=== PATIENT | female | born 1945 | race Caucasian/White ===

== ENCOUNTER → 2018-05-01 08:58 | Outpatient (CLI) | payer MEDICARE, OTHER, SELFPAY | PROVIDERS: Family Provider Family Medicine; PCP Family Medicine; Visit Provider Family Medicine | DX: R13.10 Dysphagia, unspecified (principal); Z53.9 Procedure and treatment not carried out, unspecified reason ==

== ENCOUNTER → 2018-05-03 10:43 | Outpatient (CLI) | payer MEDICARE, OTHER, SELFPAY ==
--- NOTE | 2018-05-03 | DI.RAD.S_ITS ---
PROCEDURE: FL UPPER GI W AIR INDICATIONS: DYSPHAGIA COMPARISON: None. FINDINGS: KUB: Preprocedural clinical partner film demonstrates a normal bowel gas pattern. No suspicious abdominal calcifications. Visualized solid organ contours appear normal. Bony structures appear unremarkable. Esophagus: A sliding hiatal hernia is present. There is a 1 cm diverticular outpouching over the left anterolateral aspect of the herniated segment. Also noted is mucosal irregularity along the right posterolateral aspect of the distal esophageal vestibule, suspect 4 shallow ulcerations. Marked, spontaneous and induced gastroesophageal reflux was demonstrated. On single-contrast views, there is abnormal esophageal peristalsis with failure of primary peristalsis. No strictures, extrinsic mass effects. There is normal transit of a calibrated barium tablet through the esophagus into the stomach. Stomach: The stomach is normally distensible, with normal rugal fold thickness. No mucosal masses or ulcers. Pylorus and duodenal bulb appear normal in morphology. Duodenal folds are normal in thickness as well. IMPRESSION: 1. Esophageal dysmotility. Sliding hiatal hernia with reflux and suspicion of shallow ulcerations in the distal esophagus just above the gastroesophageal junction. A small diverticular outpouching of the herniated portion of the stomach also noted. 2. Otherwise the stomach, duodenum and visualized small intestine is normal. Dictated by: Raza Root M.D. on 05/03/2018 at 12:47 Approved by: Raza Root M.D. on 05/03/2018 at 12:54
== END ==
PROVIDERS: Family Provider Family Medicine; PCP Family Medicine; Visit Provider Family Medicine
DX: K22.4 Dyskinesia of esophagus (principal); K21.9 Gastro-esophageal reflux disease without esophagitis; K44.9 Diaphragmatic hernia without obstruction or gangrene; R13.10 Dysphagia, unspecified
CPT/HCPCS: 74247

== ENCOUNTER → 2018-05-17 11:14 | Outpatient (CLI) | payer MEDICARE, OTHER, SELFPAY ==
--- NOTE | 2018-05-17 | DI.MG.S_ITS ---
BILATERAL DIGITAL SCREENING MAMMOGRAM 3D/2D WITH CAD: 05/17/2018 CLINICAL: Routine screening. Comparison is made to exams dated: 02/09/2017 mammogram, 07/29/2015 mammogram, and 07/22/2014 mammogram - [facility]. The tissue of both breasts is predominantly fatty. Current study was also evaluated with a Computer Aided Detection (CAD) system. No significant masses, calcifications, or other findings are seen in either breast. There has been no significant interval change. IMPRESSION: NEGATIVE There is no mammographic evidence of malignancy. A 1 year screening mammogram is recommended. This exam was interpreted at Station ID: [id number]. NOTE: For mammograms, a report in lay terms will be sent to the patient. Approximately 15% of breast malignancies will not be visualized mammographically. In the management of a palpable breast mass, a negative mammogram must not discourage biopsy of a clinically suspicious lesion. Electronically Signed By: Radha delarosa/gwen:05/17/2018 14:58:52 copy to: Ericka Carbone letter sent: Normal Exam ACR BI-RADS Category 1: Negative 3341F
== END ==
PROVIDERS: Family Provider Family Medicine; PCP Family Medicine; Visit Provider Family Medicine
DX: Z12.31 Encounter for screening mammogram for malignant neoplasm of breast (principal)
CPT/HCPCS: 77063; 77067

== ENCOUNTER → 2018-12-27 10:58 | Outpatient (CLI) | payer MEDICARE, OTHER, SELFPAY ==
--- NOTE | 2018-12-27 | DI.US.S_ITS ---
PROCEDURE: US THYROID INDICATIONS: THYROID NODULE TECHNIQUE: Real-time scanning was performed of the thyroid gland, with image documentation. COMPARISON: [facility], US, THYROID, 09/12/2013, 8:00. [facility], US, BIOPSY LOCALIZATION/ASPIRATION, 09/20/2013, 9:06. [facility], US, THYROID, 04/14/2014, 10:30. [facility], US, THYROID, 08/03/2015, 12:58. [facility], US, THYROID, 09/25/2017, 13:18. [facility], US, THYROID, 07/14/2016, 10:16. FINDINGS: Right: Thyroid lobe measures 3.4 x 2.2 x 1.8 cm. Two nodules are identified. Left: Thyroid lobe measures 3.5 x 1.0 x 1.4 cm. Two nodules are identified. Isthmus: 2.2 mm thick. Nodule number: 1 Location: Mid right lobe Size: 2.2 x 1.8 x 1.3 cm (previously 1.6 x 1.4 x 2.2 cm). Composition: Predominantly solid Echogenicity: Hypoechoic Shape: wider than tall. Margins: Smooth Echogenic foci: Punctate Total points: 6 ACR TI-RADS category: 4 Nodule number: 2 Location: Inferior right lobe Size: 0.6 x 0.4 x 0.5cm (previously 0.7 x 0.4 x 0.6 cm). Composition: Solid Echogenicity: Isoechoic Shape: wider than tall. Margins: Smooth Echogenic foci: None Total points: 3 ACR TI-RADS category: 3 Nodule number: 3 Location: Mid left lobe Size: 0.7 x 0.6 x 0.5 cm (previously 0.8 x 0.5 x 0.6 cm). Composition: Solid Echogenicity: Isoechoic Shape: wider than tall. Margins: Smooth Echogenic foci: None Total points: 3 ACR TI-RADS category: 3 Nodule number: 4 Location: Superior left lobe Size: 0.6 x 0.3 x 0.4 cm (2.5 x 0.4 x 0.4 cm). Composition: Predominantly cystic Echogenicity: Hypoechoic Shape: wider than tall. Margins: Smooth Echogenic foci: None Total points: 3 ACR TI-RADS category: 3 IMPRESSION: No significant change in multiple thyroid nodules bilaterally. ACR TI-RADS definitions and recommendations: TI-RADS 1 (benign): 0 points. FNA not needed. TI-RADS 2 (not suspicious): 2 points. FNA not needed. TI-RADS 3 (mildly suspicious): 3 points. * FNA if 2.5 cm or larger, follow up if 1.5 cm or larger (at 1, 3, and 5 years). TI-RADS 4 (moderately suspicious): 4-6 points. * FNA if 1.5 cm or larger, follow up if 1 cm or larger (at 1, 2, 3, and 5 years). TI-RADS 5 (highly suspicious): 7 points or more. * FNA if 1 cm or larger, follow up if 0.5 cm or larger (every year for 5 years). Dictated by: Kylee Giron M.D. on 12/27/2018 at 13:13 Approved by: Kylee Giron M.D. on 12/27/2018 at 13:29
== END ==
PROVIDERS: PCP Family Medicine; Visit Provider Family Medicine
DX: E04.2 Nontoxic multinodular goiter (principal)
CPT/HCPCS: 76536

== ENCOUNTER → 2019-01-02 14:33 | Outpatient (CLI) | payer MEDICARE, OTHER, SELFPAY ==
--- NOTE | 2019-01-02 | DI.RAD.S_ITS ---
PROCEDURE: XR HIP W PEL IF DONE LT 2V INDICATIONS: LEFT HIP FRACTURE TECHNIQUE: 2 views of the hip were acquired. COMPARISON: [facility], , HIP 2V RIGHT, 02/05/2009, 14:31. FINDINGS: Bones: No fractures or dislocations. No suspicious bony lesions. The visualized pelvic ring appears intact. Soft tissues: No suspicious soft tissue calcifications or masses. 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 Normal alignment bilaterally. Dictated by: Dewey Almanza M.D. on 01/02/2019 at 15:14 Approved by: Dewey Almanza M.D. on 01/02/2019 at 15:15
== END ==
PROVIDERS: PCP Family Medicine; Visit Provider Family Medicine
DX: S72.002A Fracture of unspecified part of neck of left femur, initial encounter for closed fracture (principal); Z96.642 Presence of left artificial hip joint
CPT/HCPCS: 73502

== ENCOUNTER → 2019-06-20 14:53 | Outpatient (CLI) | payer MEDICARE, OTHER, SELFPAY ==
--- NOTE | 2019-06-20 | DI.MG.S_ITS ---
BILATERAL DIGITAL SCREENING MAMMOGRAM 3D/2D WITH CAD: 06/20/2019 CLINICAL: Routine screening. Comparison is made to exams dated: 05/17/2018 mammogram, 02/09/2017 mammogram, and 07/29/2015 mammogram - [facility]. There are scattered fibroglandular elements in both breasts. Current study was also evaluated with a Computer Aided Detection (CAD) system. There are benign calcifications in both breasts. No significant masses, calcifications, or other findings are seen in either breast. There has been no significant interval change. IMPRESSION: There is no mammographic evidence of malignancy. A 1 year screening mammogram is recommended. This exam was interpreted at Station ID: [id number]. NOTE: For mammograms, a report in lay terms will be sent to the patient. Approximately 15% of breast malignancies will not be visualized mammographically. In the management of a palpable breast mass, a negative mammogram must not discourage biopsy of a clinically suspicious lesion. Electronically Signed By: Moustapha pham/gwen:06/20/2019 17:14:05 letter sent: Normal Exam ACR BI-RADS Category 2: Benign Finding(s) 3342F
== END ==
PROVIDERS: PCP Family Medicine; Visit Provider Family Medicine
DX: Z12.31 Encounter for screening mammogram for malignant neoplasm of breast (principal)
CPT/HCPCS: 77063; 77067

== ENCOUNTER 2019-07-04 03:13 | Emergency (ER) | payer MEDICARE, OTHER, SELFPAY ==
[2019-07-04 03:23] VITALS: BP 125/70; PULSE 84; RESP 15; TEMP 36.8; O2SAT 98; BMI 32.5
--- NOTE | 2019-07-04 03:23 | ED_ITS ---
HPI - Nausea/Vomiting/Diarrhea General Chief complaint: Nausea/Vomiting/Diarrhea Stated complaint: felt lightheaded, got sweaty, has diabetes Time Seen by Provider: 07/04/19 03:15 Source: patient Mode of arrival: Ambulatory Limitations: no limitations History of Present Illness HPI Narrative: The patient was well when she went to bed. She awoke with onset of nausea and vomiting. She had emesis x4. With 1 episode when she got up from bed to vomit she became dizzy. There was no near syncope affect. There is no chest pain, palpations or focal weakness. She has had no fever. She has also had 1 diarrhea movement. She had homemade vegetables for dinner, no suggestion for food poisoning. She has been around no one with similar illness. She has no chronic GI medical issues. She does have IDDM. Her glucose at home has been 100s. She has no urinary complaints with the GI complaints. Related Data Home Medications Medication Instructions Recorded Confirmed ASPIRIN (#ASPIRIN) 325 mg PO Q DAY #0 07/06/12 glipizide [Glucotrol] 10 mg PO BID #0 07/06/12 hydrochlorothiazide 25 mg PO QDAY #0 07/06/12 lisinopril 10 mg PO BID #0 07/06/12 Pravastatin Sodium (PRAVASTATIN 40 mg PO HS #0 07/11/12 SODIUM) diltiazem HCl 180 mg PO Q DAY #0 07/11/12 insulin aspart U-100 [Novolog #0 01/14/13 U-100 Insulin aspart] pramipexole [Mirapex] 0.125 mg PO BID #0 07/22/13 Previous Rx's Medication Instructions Recorded Syringes: 1cc U-100 Insulin syr SQ BID #100 08/17/16 Syringe 25g x 1 insulin glargine [Lantus U-100 20 unit SQ HS #10 ml 08/17/16 Insulin] ondansetron 4 mg PO Q4H PRN #14 tab 07/04/19 sulfamethoxazole-trimethoprim 1 tab PO BID 7 Days #14 tab 07/04/19 sulfamethoxazole-trimethoprim 1 tab PO Q12H 7 Days #14 tab 07/04/19 Allergies Allergy/AdvReac Type Severity Reaction Status Date / Time Sulfa (Sulfonamide Allergy Intermediate CONVULSIONS Verified 07/04/19 04:29 Antibiotics) A CHILD; RASH AN ADULT Review of Systems Review of Systems ROS Unobtainable: All systems reviewed & are unremarkable except as noted in HPI and below Constitutional Constitutional: Denies chills, Denies fever(s), Denies lethargy and Denies weakness ENT Ears, Nose, Mouth, and Throat: Reports dizziness, Denies neck pain and Denies sore throat Cardiovascular Cardiovascular: Denies chest pain, Denies lightheadedness, Denies palpitations, Denies dyspnea and Denies orthopnea Respiratory Respiratory: Denies cough, Denies dyspnea and Denies wheezing Gastrointestinal Gastrointestinal: Denies abdominal pain, Reports diarrhea, Reports nausea and Reports vomiting Genitourinary Genitourinary: Denies dysuria, Denies urinary hesitancy and Denies urinary urgency Musculoskeletal Musculoskeletal: Denies back pain and Denies neck pain Integumentary/Breasts Skin/Breast: Denies pruritus, Denies erythema, Denies rash and Denies wounds Neurologic Neurologic: Denies confusion, Reports dizziness and Denies weakness Psychiatric Psychiatric: Denies anxiety and Denies confusion Endocrine Endocrine: Denies palpitations Allergic/Immunologic Allergic/Immunologic: Denies wheezing [facility] Medical History (Updated 07/04/19 @ 05:40 by Roland Cartagena MD) Hypertension (Acute) IDDM (insulin dependent diabetes mellitus) (Acute) Surgical History History of cataract removal with insertion of prosthetic lens History of cataract removal with insertion of prosthetic lens Status post cholecystectomy Status post knee surgery Family History (Updated 09/21/15 @ 00:00 by Conversion Provider) Brother Age: 56 Heart disease Father Heart disease Grandfather Diabetes mellitus Mother Age: 90 Alzheimer's disease Diabetes mellitus Sister Diabetes mellitus Sister Age: 68 Diabetes mellitus Hypertension Social History Smoking Status: Never smoker Family History Brother Age: 56 Heart disease Father Heart disease Grandfather Diabetes mellitus Mother Age: 90 Alzheimer's disease Diabetes mellitus Sister Diabetes mellitus Sister Age: 68 Diabetes mellitus Hypertension Social History Smoking Status: Never smoker Exam Initial Vital Signs Initial Vital Signs: Vital Signs Temperature 98.2 F 07/04/19 03:23 Pulse Rate 84 07/04/19 03:23 Respiratory Rate 15 07/04/19 03:23 Blood Pressure 125/70 07/04/19 03:23 Pulse Oximetry 98 07/04/19 03:23 Const General: cooperative and well developed Nutritional Appearance: well nourished Orientation: alert, awake and oriented x3 [facility] Head: normal to inspection, normocephalic and atraumatic Mouth: oral mucosae normal and moist mucous membranes Eyes Conjunctivae: conjunctivae normal Neck Neck: full ROM, no meningeal signs and No lymphadenopathy Resp Effort & Inspection: normal respiratory effort and able to speak in complete sentences Auscultation: clear to auscultation bilaterally, no rales, no rhonchi and no wheezes Cardio Rate: regular rate Rhythm: regular rhythm Heart Sounds: no click, no gallops, no murmurs and no rubs Pulses: normal peripheral pulses GI Inspection: non-distended Palpation: soft, no hepatosplenomegaly, No guarding, No pulsatile mass and No tender Auscultation: normal bowel sounds Back/Spine/Pelvis Back: No CVA tenderness Skin General: no rashes or lesions noted Neuro General: alert, oriented x3, gait normal and no focal motor deficits Speech: speech normal Extrem General: full ROM and no clubbing, cyanosis or edema Psych Appearance: well kempt Mental Status: mental status grossly normal Attitude: cooperative Thought Content: normal Judgment: judgment good Course Orders Ordered: ED Orders 07/04/19 03:20 Complete Blood Count AUTO DIFF Stat Comprehensive Metabolic Panel Stat Lipase Stat 07/04/19 04:30 Urine Culture Stat Urine Microscopic Stat Discontinued Medications Sodium Chloride (Normal Saline 0.9%) 1,000 mls @ 1,000 mls/hr IV BOLUS ONE Stop: 07/04/19 04:22 Last Infusion: 07/04/19 04:28 Dose: 0 mls/hr Documented by: Admin: 07/04/19 03:32 Dose: 1,000 mls/hr Documented by: NATALI Ceftriaxone Sodium/Dextrose (Rocephin) 1 gm in 50 mls @ 100 mls/hr IV NOW ONE Stop: 07/04/19 05:53 Last Infusion: 07/04/19 05:52 Dose: 100 mls/hr Documented by: Admin: 07/04/19 05:26 Dose: 100 mls/hr Documented by: CHAVA Ondansetron HCl (Zofran) 4 mg IV NOW ONE Stop: 07/04/19 03:24 Last Admin: 07/04/19 03:31 Dose: 4 mg Documented by: NATALI Ondansetron HCl (Zofran Odt) 4 mg SL NOW ONE Stop: 07/04/19 05:25 Last Admin: 07/04/19 05:51 Dose: 4 mg Documented by: CHAVA Vital Signs Vital signs: Vital Signs - 8 hr 07/04/19 03:23 07/04/19 04:00 07/04/19 05:45 Temperature 98.2 F Pulse Rate 84 62 70 Respiratory Rate 15 16 15 Blood Pressure 125/70 102/54 L Blood Pressure [Right Arm] 116/49 L Pulse Oximetry 98 95 97 MDM - Nausea/Vomiting/Diarrhea Lab Data Result diagrams: 07/04/19 03:20 07/04/19 03:20 Labs: Lab Results 07/04/19 07/04/19 07/04/19 Range/Units 03:20 03:20 04:30 WBC 9.0 (4.5-11.0) X10^3/uL RBC 4.18 (4.0-5.2) X10^6/uL Hgb 12.6 (12.0-16.0) g/dL Hct 37.2 (36-46) % MCV 88.9 (80-100) fL MCH 30.0 (26-34) PG MCHC 33.8 (30-36) % RDW 13.1 (11.6-14.8) % Plt Count 251 (150-400) X10^3/uL Neut % (Auto) 71.0 (50-75) % Lymph % (Auto) 21.8 L (25-40) % [place] % (Auto) 5.5 (3-14) % Eos % (Auto) 0.7 L (2-4) % Baso % (Auto) 1.0 (0-2) % Neut # (Auto) 6400 (7833-3461) /uL Lymph # (Auto) 2000 (4484-7538) /uL [place] # (Auto) 500 (0-900) /uL Eos # (Auto) 100 (0-450) /uL Baso # (Auto) 100 (0-100) /uL Sodium 136 L (137-145) mmol/L Potassium 3.8 (3.4-5.1) mmol/L Chloride 97 L (98-107) mmol/L Carbon Dioxide 25 (22-32) mmol/L BUN 24 H (7-17) mg/dL Creatinine 1.00 (0.52-1.04) mg/dL Estimated GFR 54.2 L (>60) mL/min BUN/Creatinine Ratio 24.0 H (6-22) Glucose 230 H (80-110) mg/dL Calcium 8.9 (8.4-10.2) mg/dL Total Bilirubin 0.6 (0.2-1.3) mg/dL AST 20 (14-36) IU/L ALT 17 (9-52) IU/L Alkaline Phosphatase 73 (38-126) U/L Total Protein 6.9 (6.3-8.2) g/dL Albumin 3.9 (3.5-5.0) g/dL Globulin 3.0 (1.7-4.1) g/dL Albumin/Globulin Ratio 1.3 (1.0-2.8) Lipase 52 (23-300) U/L Urine RBC 5-10/hpf H (0-5/HPF) Urine WBC None seen (0-5/HPF) Ur Squamous Epith Cells 0-1 /hpf (0-5/HPF) Urine Bacteria Many (>30) H (None) Ur Culture Indicated? Specimen cultured Point of Care Testing Glucose POC 220 Urine Dip Bedside Urine Glucose Negative Bedside Urine Bilirubin - Negative Bedside Urine Ketone + 15 Urine Specific [place] 1.015 Bedside Urine Occult Blood - Negative Bedside Urine pH 6.0 Bedside Urine Protein +/- 15 Bedside Urine Urobilinogen - Negative Bedside Urine Nitrite + Positive Bedside Urine Leukocytes + 70 Esterase Discharge Plan Departure Patient Disposition: Home Clinical Impression: Nausea vomiting and diarrhea Urinary tract infection Qualifiers: Urinary tract infection type: acute cystitis Hematuria presence: without hematuria Qualified Code(s): N30.00 - Acute cystitis without hematuria Discharge Date/Time: 07/04/19 05:45 Instructions: DI for Urinary Tract Infection (UTI), DI for Vomiting -- Adult Activity Restrictions/Additional Instructions: Septra DS 2x times daily for 1 week. This is an antibiotic for the UTI. Zofran every 4 hours as needed for nausea. Drink plenty of water. Return to your regular diet as tolerated. Return the ER for increased nausea vomiting, fever, or simply not improving. Prescriptions: New sulfamethoxazole-trimethoprim 800-160 mg tablet 1 tab PO Q12H 7 Days Qty: 14 RF: 0 ondansetron 4 mg tablet,disintegrating 4 mg PO Q4H PRN (Reason: nausea and vomiting) Qty: 14 RF: 0 sulfamethoxazole-trimethoprim 800-160 mg tablet 1 tab PO BID 7 Days Qty: 14 RF: 0 No Action lisinopril 10 MG tablet 10 mg PO BID Qty: 0 RF: 0 ASPIRIN (#ASPIRIN) 325 mg PO Q DAY Qty: 0 RF: 0 glipizide [Glucotrol] 10 MG tablet 10 mg PO BID Qty: 0 RF: 0 hydrochlorothiazide 25 MG tablet 25 mg PO QDAY Qty: 0 RF: 0 diltiazem HCl 180 MG capsule,extended release 24hr 180 mg PO Q DAY Qty: 0 RF: 0 Pravastatin Sodium (PRAVASTATIN SODIUM) 40 mg PO HS Qty: 0 RF: 0 insulin aspart U-100 [Novolog U-100 Insulin aspart] 100 UNIT/1 ML solution Qty: 0 RF: 0 pramipexole [Mirapex] 0.125 MG tablet 0.125 mg PO BID Qty: 0 RF: 0 insulin glargine [Lantus U-100 Insulin] 100 UNIT/1 ML solution 20 unit SQ HS Qty: 10 RF: 3 Syringes: 1cc U-100 Insulin Syringe 25g x 1 SQ BID Qty: 100 RF: 3 Referrals: Roland Carbone MD [Primary Care Provider] -
[2019-07-04] MEDS: ONDANSETRON 4 MG/2 ML INJ IV (03:31)
[2019-07-04] MEDS: SODIUM CHLORIDE 0.9% 1,000 ML 1000 ML IV (03:32)
[2019-07-04 03:39] LABS: Add Manual Diff / Slide Review NO; Basophils Absolute Auto 100 /uL (0-100); Eosinophils Absolute Auto 100 /uL (0-450); Eosinophils Percent Auto 0.7 % (2-4); Hematocrit 37.2 % (36-46); Hemoglobin 12.6 g/dL (12.0-16.0); Lymphocytes Absolute Auto 2000 /uL (1100-4500); Lymphocytes Percent Auto 21.8 % (25-40); Mean Corpuscular HGB Conc 33.8 % (30-36); Mean Corpuscular Volume 88.9 fL (80-100); Monocytes Absolute Auto 500 /uL (0-900); Monocytes Percent Auto 5.5 % (3-14); Neutrophils Absolute Auto 6400 /uL (1500-7000); Platelet Count 251 X10^3/uL (150-400); Red Blood Cell Count 4.18 X10^6/uL (4.0-5.2); Red Cell Distribution Width 13.1 % (11.6-14.8)
[2019-07-04 03:48] LABS: Alanine Aminotransferase 17 IU/L (9-52); Albumin 3.9 g/dL (3.5-5.0); Albumin Globulin Ratio 1.3 (1.0-2.8); Alkaline Phosphatase 73 U/L (38-126); Aspartate Aminotransferase 20 IU/L (14-36); Bilirubin Total 0.6 mg/dL (0.2-1.3); Blood Urea Nitrogen 24 mg/dL (7-17); Calcium 8.9 mg/dL (8.4-10.2); Carbon Dioxide 25 mmol/L (22-32); Chloride 97 mmol/L (98-107); Estimated Glomerular Filt Rate 54.2 mL/min (>60); Glucose 230 mg/dL (80-110); HEMOLYSIS < 15 (0-50); Lipase 52 U/L (23-300); Potassium 3.8 mmol/L (3.4-5.1); Sodium 136 mmol/L (137-145); Total Protein 6.9 g/dL (6.3-8.2)
[2019-07-04 04:00] VITALS: BP 116/49; PULSE 62; RESP 16; O2SAT 95
[2019-07-04 04:42] LABS: WBC Urine None Seen (0-5/HPF)
[2019-07-04 04:48] LABS: RBC Urine 5-10/HPF (0-5/HPF)
[2019-07-04 04:49] LABS: Bacteria Urine Many (>30); Culture Indicated Urine Specimen Cultured; Squamous Epithelial Cell Urine 0-1 /HPF (0-5/HPF)
[2019-07-04] MEDS: CEFTRIAXONE 1 GM/50 ML FROZ.PIGGY IV (05:26)
[2019-07-04 05:45] VITALS: BP 102/54; PULSE 70; RESP 15; O2SAT 97
[2019-07-04] MEDS: ONDANSETRON 4 MG ODT SL (05:51)
== END 2019-07-04 05:45 | disposition home or self-care (01) ==
PROVIDERS: Emergency Provider Emergency Medicine; PCP Family Medicine
DX: R11.2 Nausea with vomiting, unspecified (principal); R19.7 Diarrhea, unspecified; N30.00 Acute cystitis without hematuria
CPT/HCPCS: 36415; 80053; 81003; 81015; 82962; 83690; 85025; 87077; 87086; 87186; 96361; 96365; 96375; 99283; 99284; J2405

== ENCOUNTER 2020-01-25 23:01 | Emergency (ER) | payer MEDICARE, OTHER, SELFPAY ==
[2020-01-25 23:05] VITALS: BP 160/80; PULSE 98; RESP 15; TEMP 37.1; O2SAT 99; BMI 30.7
[2020-01-25 23:32] LABS: Add Manual Diff / Slide Review NO; Basophils Absolute Auto 100 /uL (0-100); Basophils Percent Auto 0.6 % (0-2); Eosinophils Absolute Auto 100 /uL (0-450); Hematocrit 40.3 % (36-46); Hemoglobin 13.9 g/dL (12.0-16.0); Lymphocytes Absolute Auto 4200 /uL (1100-4500); Lymphocytes Percent Auto 39.2 % (25-40); Mean Corpuscular HGB Conc 34.5 % (30-36); Mean Corpuscular Hemoglobin 30.8 PG (26-34); Mean Corpuscular Volume 89.2 fL (80-100); Monocytes Absolute Auto 800 /uL (0-900); Monocytes Percent Auto 7.4 % (3-14); Neutrophils Absolute Auto 5600 /uL (1500-7000); Neutrophils Percent Auto 51.8 % (50-75); Platelet Count 301 X10^3/uL (150-400); Red Blood Cell Count 4.52 X10^6/uL (4.0-5.2); Red Cell Distribution Width 12.8 % (11.6-14.8); White Blood Cell Count 10.8 X10^3/uL (4.5-11.0)
[2020-01-25 23:40] LABS: Alanine Aminotransferase 14 IU/L (<35); Albumin 4.4 g/dL (3.5-5.0); Albumin Globulin Ratio 1.2 (1.0-2.8); Alkaline Phosphatase 69 U/L (38-126); Aspartate Aminotransferase 27 IU/L (14-36); BUN Creatinine Ratio 20.4 (6-22); Bilirubin Total 0.8 mg/dL (0.2-1.3); Blood Urea Nitrogen 19 mg/dL (7-17); Calcium 9.8 mg/dL (8.4-10.2); Carbon Dioxide 27 mmol/L (22-32); Chloride 95 mmol/L (98-107); Creatine Kinase 41 U/L (30-135); Estimated Glomerular Filt Rate 58.8 mL/min (>60); Globulin 3.7 g/dL (1.7-4.1); Glucose 178 mg/dL (80-110); HEMOLYSIS 49 (0-50); Potassium 3.3 mmol/L (3.4-5.1); Sodium 132 mmol/L (137-145); Total Protein 8.1 g/dL (6.3-8.2)
[2020-01-25 23:51] LABS: D Dimer 365 ng/mL (<230); Troponin I < 0.012 ng/mL (0.01-0.034)
[2020-01-26] VITALS: BP 131/72; PULSE 66; O2SAT 100
[2020-01-26] MEDS: POTASSIUM CHLORIDE 20 MEQ/15 ML UDC 40 MEQ PO (00:32)
[2020-01-26 00:42] VITALS: BP 130/74; PULSE 81; RESP 14; O2SAT 99
--- NOTE | 2020-01-26 04:10 | ED_ITS ---
HPI - Syncope General Chief Complaint: Syncope Stated Complaint: passed out this morning Time Seen by Provider: 01/25/20 23:05 Source: patient Mode of arrival: Ambulatory Limitations: no limitations History of Present Illness HPI narrative: 74-year-old female nonsmoker with history of diabetes and hypertension presents with her daughter and a chief complaint of a brief episode of syncope this morning. She has felt fine well over the rest of the day and is at her baseline and decided to come in this evening after speaking with her son who works in healthcare. Patient woke up this morning largely in her normal state of health and has the morning wore on she began to feel fatigued, lightheaded and weak, very consistent with prior episodes of low blood sugar. She used her blood glucose machine, which is 25 years old, and it registered 141, despite this, because of how she feels she decided to take some glucose and felt tremendous relief. She rechecked her blood glucose, with her old machine, and it continued to register 141. She contacted her daughter who came to see her and got her a new machine. She denies any injury as a consequence of her syncopal episode. She states she felt herself becoming lightheaded and aided herself to the ground. She states her episode was brief and she has felt well over the remainder of the day. She denies chest pain or shortness of breath. She denies nausea, vomiting or diarrhea. She denies any recent medication or dietary change. MD complaint: loss of consciousness and felt faint Onset (ago): hour(s) -: second(s) Prodromal symptoms: lightheaded Witnessed: no Injuries sustained associated with event: none Current symptoms: none Related Data Home Medications Medication Instructions Recorded Confirmed ASPIRIN (#ASPIRIN) 325 mg PO Q DAY #0 07/06/12 glipizide [Glucotrol] 10 mg PO BID #0 07/06/12 hydrochlorothiazide 25 mg PO QDAY #0 07/06/12 lisinopril 10 mg PO BID #0 07/06/12 Pravastatin Sodium (PRAVASTATIN 40 mg PO HS #0 07/11/12 SODIUM) diltiazem HCl 180 mg PO Q DAY #0 07/11/12 insulin aspart U-100 [Novolog #0 01/14/13 U-100 Insulin aspart] pramipexole [Mirapex] 0.125 mg PO BID #0 07/22/13 Previous Rx's Medication Instructions Recorded Syringes: 1cc U-100 Insulin syr SQ BID #100 08/17/16 Syringe 25g x 1 insulin glargine [Lantus U-100 20 unit SQ HS #10 ml 08/17/16 Insulin] ondansetron 4 mg PO Q4H PRN #14 tab 07/04/19 Allergies Allergy/AdvReac Type Severity Reaction Status Date / Time Sulfa (Sulfonamide Allergy Intermediate CONVULSIONS Verified 07/04/19 04:29 Antibiotics) A CHILD; RASH AN ADULT Review of Systems Constitutional Constitutional: Denies chills, Denies fatigue, Denies fever(s), Denies frequent falls, Denies lethargy and Denies weakness Eyes Eyes: Denies change in vision, Denies eye discharge, Denies irritation and Denies loss of vision ENT Ears, Nose, Mouth, and Throat: Denies change in voice, Denies dizziness, Denies neck pain, Denies sore throat and Denies throat swelling Cardiovascular Cardiovascular: Denies chest pain, Reports syncope, Denies irregular heart rhythm, Denies lightheadedness, Denies palpitations, Denies dyspnea, Denies dyspnea on exertion and Denies orthopnea Respiratory Respiratory: Denies cough, Denies dyspnea, Denies dyspnea on exertion and Denies wheezing Gastrointestinal Gastrointestinal: Denies abdominal pain, Denies change in bowel habits, Denies diarrhea, Denies nausea and Denies vomiting Genitourinary Genitourinary: Denies hematuria, Denies flank pain, Denies urinary incontinence and Denies urinary urgency Musculoskeletal Musculoskeletal: Denies back pain, Denies muscle weakness, Denies neck pain, Denies numbness and Denies tingling Integumentary/Breasts Skin/Breast: Denies pruritus, Denies erythema, Denies rash and Denies wounds Neurologic Neurologic: Denies behavioral changes, Denies confusion, Denies dizziness, Reports syncope, Denies frequent falls, Denies loss of vision, Denies numbness, Denies tingling and Denies weakness Psychiatric Psychiatric: Denies anxiety, Denies behavioral changes, Denies confusion, Denies depression, Denies homicidal ideation and Denies suicidal ideation Endocrine Endocrine: Denies fatigue, Denies flushing and Denies palpitations Hematologic/Lymphatic Hematologic/Lymphatic: Denies easy bruising Allergic/Immunologic Allergic/Immunologic: Denies urticaria, Denies throat swelling and Denies wheezing Patient History Medical History Hypertension (Acute) IDDM (insulin dependent diabetes mellitus) (Acute) Surgical History History of cataract removal with insertion of prosthetic lens History of cataract removal with insertion of prosthetic lens Status post cholecystectomy Status post knee surgery Family History Brother Age: 57 Heart disease Father Heart disease Grandfather Diabetes mellitus Mother Age: 91 Alzheimer's disease Diabetes mellitus Sister Diabetes mellitus Sister Age: 69 Diabetes mellitus Hypertension Social History Smoking Status: Never smoker Smoking Status: Never smoker alcohol intake frequency: 0-2 drinks per day Substance Use Type: does not use Exam Narrative Exam Narrative: GENERAL: [74] year old patient appears stated age. Well- nourished, well-developed patient, in mild distress. HEAD: Atraumatic. Normocephalic. EYES: Pupils equal round and reactive. Extraocular motions intact. No scleral icterus. No injection or drainage. ENT: Nose without bleeding, purulent drainage. Throat without erythema, tonsillar hypertrophy or exudate. Airway patent. NECK: Trachea midline. Non tender CARDIOVASCULAR: Regular rate and rhythm without murmurs, gallops, or rubs. RESPIRATORY: Clear to auscultation. Breath sounds equal bilaterally. No wheezes, rales, or rhonchi. GASTROINTESTINAL: Abdomen soft, non-tender, nondistended. EXTREMITIES: No edema or joint tenderness. BACK: Nontender without deformity or crepitance. No flank tenderness. NEURO: AOx3. SKIN: No rash or erythema of visible areas Initial Vital Signs Initial Vital Signs: Vital Signs Temperature 98.8 F 01/25/20 23:05 Pulse Rate 98 H 01/25/20 23:05 Respiratory Rate 15 01/25/20 23:05 Blood Pressure 160/80 H 01/25/20 23:05 Pulse Oximetry 99 01/25/20 23:05 Course Orders Ordered: ED Orders 01/25/20 23:13 EKG-12 Lead Stat 01/25/20 23:22 Complete Blood Count AUTO DIFF Stat Comprehensive Metabolic Panel Stat D Dimer Stat Troponin & CK Cardiac Panel Stat Discontinued Medications Sodium Chloride (Normal Saline 0.9%) 1,000 mls @ 150 mls/hr IV CONT JACKSON Last Admin: 01/26/20 00:32 Dose: Not Given Documented by: NATALI Potassium Chloride (Potassium Chloride) 40 meq PO NOW ONE Stop: 01/26/20 00:11 Last Admin: 01/26/20 00:32 Dose: 40 meq Documented by: NATALI Vital Signs Vital signs: Vital Signs - 8 hr 01/25/20 23:05 01/26/20 00:00 01/26/20 00:42 Temperature 98.8 F Pulse Rate 98 H 66 81 Respiratory Rate 15 14 Blood Pressure 160/80 H 130/74 Blood Pressure [Left Arm] 131/72 Pulse Oximetry 99 100 99 MDM - Syncope Lab Data Result diagrams: 01/25/20 23:22 01/25/20 23:22 Labs: Lab Results 01/25/20 01/25/20 01/25/20 Range/Units 23:22 23:22 23:22 WBC 10.8 (4.5-11.0) X10^3/uL RBC 4.52 (4.0-5.2) X10^6/uL Hgb 13.9 (12.0-16.0) g/dL Hct 40.3 (36-46) % MCV 89.2 (80-100) fL MCH 30.8 (26-34) PG MCHC 34.5 (30-36) % RDW 12.8 (11.6-14.8) % Plt Count 301 (150-400) X10^3/uL Neut % (Auto) 51.8 (50-75) % Lymph % (Auto) 39.2 (25-40) % [place] % (Auto) 7.4 (3-14) % Eos % (Auto) 1.0 L (2-4) % Baso % (Auto) 0.6 (0-2) % Neut # (Auto) 5600 (6996-9463) /uL Lymph # (Auto) 4200 (9794-4760) /uL [place] # (Auto) 800 (0-900) /uL Eos # (Auto) 100 (0-450) /uL Baso # (Auto) 100 (0-100) /uL D-Dimer 365 H (<230) ng/mL Sodium 132 L (137-145) mmol/L Potassium 3.3 L (3.4-5.1) mmol/L Chloride 95 L (98-107) mmol/L Carbon Dioxide 27 (22-32) mmol/L BUN 19 H (7-17) mg/dL Creatinine 0.93 (0.52-1.04) mg/dL Estimated GFR 58.8 L (>60) mL/min BUN/Creatinine Ratio 20.4 (6-22) Glucose 178 H (80-110) mg/dL Calcium 9.8 (8.4-10.2) mg/dL Total Bilirubin 0.8 (0.2-1.3) mg/dL AST 27 (14-36) IU/L ALT 14 (<35) IU/L Alkaline Phosphatase 69 (38-126) U/L Total Creatine Kinase 41 (30-135) U/L CK-MB (CK-2) TNP CK-MB (CK-2) Rel Index TNP Troponin I < 0.012 (0.01-0.034) ng/mL Total Protein 8.1 (6.3-8.2) g/dL Albumin 4.4 (3.5-5.0) g/dL Globulin 3.7 (1.7-4.1) g/dL Albumin/Globulin Ratio 1.2 (1.0-2.8) Point of Care Testing Glucose POC 167 ECG Data Attestation: I personally reviewed and interpreted this ECG as follows: MDM Narrative Medical decision making narrative: Patient felt symptoms consistent with prior episodes of hypoglycemia and had brief syncopal episode with prodromal symptoms. She took some glucose and felt much better though her glucometer registered no change. Multiple other diagnoses such as cardiac ischemia or electrolyte disturbance considered but thought less likely given labs. Her K was slightly low at 3.3, but this is highly unlikely to cause syncope. PE considered but [facility] PE algorithm used and no imaging indicated given (age corrected) DDImer which is negative. IT seems most likely that she was hypoglycemic. Extensive discussion with patient and her daughter, return precautions given and questions answered to their apparent satisfaction Discharge Plan Departure Patient Disposition: Home Clinical Impression: Syncope, Acute hypokalemia Discharge Date/Time: 01/26/20 00:44 Instructions: DI for Syncope in Adults (Fainting) Activity Restrictions/Additional Instructions: *You have been diagnosed with [syncopal episode, likely from low blood sugar. Mildly low potassium] *What to do: *Take medications as directed *Follow up with your primary care provider in 2-3 days, call for an appointment. Let them know you were seen in the Emergency Department and that we ask that you be seen in follow up *Return to ER if you should have any new, worsening or concerning symptoms Prescriptions: No Action lisinopril 10 MG tablet 10 mg PO BID Qty: 0 RF: 0 ASPIRIN (#ASPIRIN) 325 mg PO Q DAY Qty: 0 RF: 0 glipizide [Glucotrol] 10 MG tablet 10 mg PO BID Qty: 0 RF: 0 hydrochlorothiazide 25 MG tablet 25 mg PO QDAY Qty: 0 RF: 0 diltiazem HCl 180 MG capsule,extended release 24hr 180 mg PO Q DAY Qty: 0 RF: 0 Pravastatin Sodium (PRAVASTATIN SODIUM) 40 mg PO HS Qty: 0 RF: 0 insulin aspart U-100 [Novolog U-100 Insulin aspart] 100 UNIT/1 ML solution Qty: 0 RF: 0 pramipexole [Mirapex] 0.125 MG tablet 0.125 mg PO BID Qty: 0 RF: 0 insulin glargine [Lantus U-100 Insulin] 100 UNIT/1 ML solution 20 unit SQ HS Qty: 10 RF: 3 Syringes: 1cc U-100 Insulin Syringe 25g x 1 SQ BID Qty: 100 RF: 3 ondansetron 4 mg tablet,disintegrating 4 mg PO Q4H PRN (Reason: nausea and vomiting) Qty: 14 RF: 0 Referrals: Roland Carbone MD [Primary Care Provider] -
== END 2020-01-26 00:44 | disposition home or self-care (01) ==
PROVIDERS: Emergency Provider Emergency Medicine; PCP Family Medicine
DX: R55 Syncope and collapse (principal); E87.6 Hypokalemia; E11.8 Type 2 diabetes mellitus with unspecified complications; Z79.4 Long term (current) use of insulin; I10 Essential (primary) hypertension
CPT/HCPCS: 36415; 80053; 82550; 82962; 84484; 85025; 85379; 93005; 99284

== ENCOUNTER → 2020-01-29 15:24 | Outpatient (CLI) | payer MEDICARE, OTHER, SELFPAY ==
--- NOTE | 2020-01-29 15:26 | DI.ECHO.S_ITS ---
[facility]---------+ [facility] +---------+ : : [address] : : : : [id number] : : : : Phone: [phone]+ Echocardiogram Report + + :Name: FEDE CEDILLO Study Date: 01/29/2020 Height: 60 in : :[facility] Weight: 165 lb : : Gender: Female BSA: 1.7 m2 : :: 1945 Age: 74 yrs BP: 159/88 mmHg: :Reason For Study: syncope and collapse : : Performed By: Mandie Reynoso : :Referring: YUNG BANUELOS : + + Interpretation Summary There was technical difficulty with rhythm strp at the beginning of the study. By the end of the study, ECG showed normal sinus rhythm at 78 bpm. The left ventricle is normal in size. Left ventricular wall thickness is mildly increased. The left ventricular ejection fraction is normal. Left ventricular wall motion is normal. Diastolic parameters suggest a relaxation abnormality of the left ventricle, consistent with probable normal filling pressures. The right ventricle is normal in size and function. Both atria are normal in size. Procedure: A two-dimensional transthoracic echocardiogram with color flow and Doppler was performed. The study quality was technically adequate. There is no prior echocardiogram noted for this patient. The patient was in sinus rhythm with heart rates between 64 bpm during the exam. There was technical difficulty with rhythm strp at the beginning of the study. By the end of the study, ECG showed normal sinus rhythm at 78 bpm. Left Ventricle: The left ventricle is normal in size. Left ventricular wall thickness is mildly increased. The ejection fraction is estimated to be 60- 65%. The left ventricular ejection fraction is normal. Left ventricular wall motion is normal. Diastolic parameters suggest a relaxation abnormality of the left ventricle, consistent with probable normal filling pressures. Right Ventricle: The right ventricle is normal in size and function. Atria: Both atria are normal in size. There is no Doppler evidence for an interatrial shunt. Mitral Valve: The mitral valve is normal in structure and function. There is trace mitral regurgitation. Aortic Valve: The aortic valve is trileaflet. The aortic valve opens well. There is trace aortic regurgitation. Tricuspid Valve: The tricuspid valve is normal in structure and function. There is a trace or physiologic amount of tricuspid regurgitation. Pulmonary artery pressures cannot be estimated because of the lack of a measurable TR jet velocity but the IVC suggests a CVP of around 3 mmHg. Pulmonic Valve: The pulmonic valve is not well visualized. There is no pulmonic valvular regurgitation. Great Vessels: The aortic root is normal size. The ascending aorta is mild- moderately enlarged. The IVC is of normal diameter and collapses greater than 50% with a sniff. This suggests a low right atrial pressure of 3 mm Hg. Pericardium/ Pleura There is no pericardial effusion. There is no pleural effusion. MMode/2D Measurements & Calculations LVIDd: 3.7 cm LVOT diam: 2.1 cm LVIDs: 2.5 cm Ao root diam: 2.9 cm FS: 34.3 % asc Aorta Diam: 3.7 cm EPSS: 1.1 cm Ao Arch Diam (Prox Trans): 2.3 cm IVSd: 0.90 cm LVPWd: 1.1 cm LV cuevas. diameter/BSA (cm/m^2): 2.2 LV sys. diameter/BSA (cm/m^2): 1.4 LA A2 area: 16.2 cm2 RA long axis: 4.1 cm LA A4 area: 11.0 cm2 RA area: 11.7 cm2 LA length (vol): 4.7 cm RA vol: 28.5 ml LA vol: 32.4 ml RA : 16.6 ml/m2 LA vol index: 18.8 ml/m2 RVD1 (basal): 2.6 cm TAPSE: 2.0 cm Doppler Measurements & Calculations Ao V2 max: 155.2 cm/sec LVOT Max Jordon: 100.7 cm/sec Ao V2 mean: 93.3 cm/sec LV V1 max P.1 mmHg Ao max P.6 mmHg LV V1 VTI: 18.5 cm Ao mean P.2 mmHg NADYA(I,D): 2.4 cm2 Ao V2 VTI: 26.1 cm NADYA(V,D): 2.2 cm2 sev ratio: 0.71 NADYA indexed to BSA (cm^2/m^2): 1.4 MV E max jordon: 63.4 cm/sec PA V2 max: 88.2 cm/sec MV A max jordon: 94.7 cm/sec PA V2 mean: 57.4 cm/sec MV E/A: 0.67 PA mean P.5 mmHg Med Peak E' Jordon: 3.7 cm/sec E/E' med: 17.3 Lat Peak E' Jordon: 7.5 cm/sec E/E' lat: 8.4 E/e' average: 12.9 MV dec time: 0.22 sec SV(LVOT): 62.6 ml Electronically signed by: Fabien Munoz M.D. on Reading Physician:01/29/2020 06:43 PM
--- NOTE | 2020-01-29 15:26 | DI.US.S_ITS ---
PROCEDURE: US CAROTID DOPPLER BI INDICATIONS: SYNCOPE AND COLLAPSE TECHNIQUE: Color and pulse Doppler interrogation was performed of both carotid systems, with image documentation and velocity measurements. COMPARISON: None. FINDINGS: Stenosis calculations are based on SRU (Society of Radiologists in Ultrasound) criteria. The flow velocities and the arterial waveforms are normal within both carotid arterial systems. Atherosclerotic plaque is seen on both sides. The estimated degree of internal carotid artery stenosis is less than 50%. Antegrade flow is confirmed within both vertebral arteries. IMPRESSION: No hemodynamically significant stenosis is seen. Atherosclerotic plaque is noted bilaterally. Dictated by: Zay Becker M.D. on 01/29/2020 at 16:16 Approved by: Zay Becker M.D. on 01/29/2020 at 16:17
== END ==
PROVIDERS: PCP Family Medicine; Referring Provider Family Medicine; Visit Provider Family Medicine
DX: R55 Syncope and collapse (principal); I65.23 Occlusion and stenosis of bilateral carotid arteries; I77.89 Other specified disorders of arteries and arterioles
CPT/HCPCS: 93306; 93880

== ENCOUNTER → 2020-05-20 12:45 | Outpatient (CLI) | payer MEDICARE, OTHER, SELFPAY | PROVIDERS: PCP Family Medicine; Referring Provider Family Medicine; Visit Provider Family Medicine | DX: M85.851 Other specified disorders of bone density and structure, right thigh (principal); Z78.0 Asymptomatic menopausal state; E11.9 Type 2 diabetes mellitus without complications | CPT/HCPCS: 77080 ==

== ENCOUNTER → 2020-07-02 15:47 | Outpatient (CLI) | payer MEDICARE, OTHER, SELFPAY ==
--- NOTE | 2020-07-02 | DI.MG.S_ITS ---
BILATERAL DIGITAL SCREENING MAMMOGRAM 3D/2D WITH CAD: 07/02/2020 CLINICAL: Routine screening. Comparison is made to exams dated: 05/17/2018 mammogram, 02/09/2017 mammogram, and 06/20/2019 mammogram - [facility]. There are scattered fibroglandular elements in both breasts. Current study was also evaluated with a Computer Aided Detection (CAD) system. There are benign calcifications in both breasts. No significant masses, calcifications, or other findings are seen in either breast. There has been no significant interval change. IMPRESSION: BENIGN There is no mammographic evidence of malignancy. A 1 year screening mammogram is recommended. This exam was interpreted at Station ID: [id number]. NOTE: For mammograms, a report in lay terms will be sent to the patient. Approximately 15% of breast malignancies will not be visualized mammographically. In the management of a palpable breast mass, a negative mammogram must not discourage biopsy of a clinically suspicious lesion. Electronically Signed By: Pipo urena/gwen:07/02/2020 16:13:49 letter sent: Normal Exam ACR BI-RADS Category 2: Benign Finding(s) 3342F
== END ==
PROVIDERS: PCP Family Medicine; Referring Provider Family Medicine; Visit Provider Family Medicine
DX: Z12.31 Encounter for screening mammogram for malignant neoplasm of breast (principal)
CPT/HCPCS: 77063; 77067

== ENCOUNTER → 2020-11-16 14:50 | Outpatient (CLI) | payer MEDICARE, OTHER, SELFPAY ==
--- NOTE | 2020-11-16 14:55 | DI.RAD.S_ITS ---
PROCEDURE: XR CHEST 2V INDICATIONS: HYPOXIA TECHNIQUE: 2 views of the chest were acquired. COMPARISON: None. FINDINGS: Surgical changes and devices: None. Lungs and pleura: Patchy bilateral airspace and interstitial ground-glass opacities. No visible pleural effusion. Mediastinum: Mediastinal contours are normal. Heart size is normal. Bones and chest wall: No suspicious bony abnormalities. Soft tissues appear unremarkable. IMPRESSION: Patchy interstitial and airspace opacities in both lungs. Findings may represent multifocal pneumonia nor pulmonary edema, among other less likely etiologies. Dictated by: Sander Moran M.D. on 11/16/2020 at 14:59 Approved by: Sander Moran M.D. on 11/16/2020 at 15:00
== END ==
PROVIDERS: PCP Family Medicine; Referring Provider Family Medicine; Visit Provider Family Medicine
DX: R09.02 Hypoxemia (principal)
CPT/HCPCS: 71046

== ENCOUNTER → 2021-01-13 08:49 | Outpatient (CLI) | payer MEDICARE, OTHER, SELFPAY ==
[2021-01-13 10:17] LABS: COVID19 -Nasal RAPID Negative (Negative)
== END ==
PROVIDERS: PCP Family Medicine; Referring Provider Family Medicine; Visit Provider Family Medicine
DX: R09.02 Hypoxemia (principal); Z20.822 Contact with and (suspected) exposure to COVID-19
CPT/HCPCS: 87635; C9803

== ENCOUNTER → 2021-01-15 08:38 | Outpatient (CLI) | payer MEDICARE, OTHER, SELFPAY ==
--- NOTE | 2021-01-20 11:24 | PM.PFT.1 ---
Pulmonary Function Test Referral & Results Date Patient Seen: 01/15/21 Requesting provider: Roland Carbone Results: The spirometry demonstrates an FVC of 1.53 L which is 67% of predicted. The FEV1 was measured at 1.44 L which is 84% of predicted. The FEV1/FVC ratio was 94 which is 125% of predicted. Following the administration of bronchodilator there was a 33% improvement in FEF 25-75%. Lung volumes show an SVC of 1.55 L which is 66% of predicted. The diffusing capacity was measured at 10.95 which is 58% of predicted. No hemoglobin value was provided, so no correction for potential anemia could be made, if appropriate. The maximum voluntary ventilation was reduced Interpretation: This study demonstrates moderately severe restrictive lung disease although there is some element of benefit in small airway flow after bronchodilator but FEV1 and FEV1/FVC ratio are normal the suggesting no notable obstructive lung disease There is also reduction in diffusing capacity which would be most consistent with interstitial lung disease, specially given the restrictive lung disease noted above Clinical correlation suggested
== END ==
PROVIDERS: PCP Family Medicine; Referring Provider Family Medicine; Visit Provider Family Medicine
DX: R09.02 Hypoxemia (principal); J98.8 Other specified respiratory disorders
CPT/HCPCS: 94060; 94726; 94729

== ENCOUNTER → 2021-02-04 08:52 | Outpatient (CLI) | payer MEDICARE, OTHER, SELFPAY ==
[2021-02-04 10:08] LABS: COVID19 -Nasal RAPID Negative (Negative)
== END ==
PROVIDERS: PCP Family Medicine; Referring Provider Internal Medicine; Visit Provider Internal Medicine
DX: Z20.822 Contact with and (suspected) exposure to COVID-19 (principal)
CPT/HCPCS: 87635; C9803

== ENCOUNTER → 2021-02-05 14:39 | Outpatient (CLI) | payer MEDICARE, OTHER, SELFPAY ==
--- NOTE | 2021-02-10 09:09 | PM.PFT.1 ---
Pulmonary Function Test Referral & Results Date Patient Seen: 02/05/21 Requesting provider: Roland Carbone Results: The spirometry demonstrates an FVC of 1.71 L which is 75% of predicted. The FEV1 was measured at 1.61 L which is 95% of predicted. The FEV1/FVC ratio was 94 which is 125% of predicted. Following the administration of bronchodilator there was no appreciable change. Lung volumes show an SVC of 1.75 L which is 75% of predicted. The diffusing capacity was measured at 10.42 which is 55% of predicted. No hemoglobin value was provided, so no correction for potential anemia could be made, if appropriate. The maximum voluntary ventilation was reduced Interpretation: This study demonstrates moderate restrictive lung disease based on reduction SVC There is also a moderate reduction in diffusing capacity suggesting element of disease at the capillary alveolar level Compared to PFTs performed January 15, 2021, current study is essentially unchanged. Previous studies suggested the possibility obstructive lung disease which is not present on current study.
== END ==
PROVIDERS: PCP Family Medicine; Referring Provider Family Medicine; Visit Provider Family Medicine
DX: R06.02 Shortness of breath (principal); R09.02 Hypoxemia
CPT/HCPCS: 94060; 94726; 94729

== ENCOUNTER 2021-08-11 02:10 | Emergency (ER) | payer MEDICARE, OTHER, SELFPAY ==
[2021-08-11 02:10] VITALS: BP 183/79; PULSE 80; RESP 18; TEMP 36.3; O2SAT 98; BMI 29.2
[2021-08-11 02:44] LABS: Add Manual Diff / Slide Review NO; Basophils Absolute Auto 100 /uL (0-100); Basophils Percent Auto 0.8 % (0-2); Eosinophils Absolute Auto 200 /uL (0-450); Eosinophils Percent Auto 2.4 % (2-4); Hematocrit 38.2 % (36-46); Hemoglobin 12.6 g/dL (12.0-16.0); Lymphocytes Absolute Auto 2900 /uL (1100-4500); Lymphocytes Percent Auto 32.7 % (25-40); Mean Corpuscular HGB Conc 32.9 % (30-36); Mean Corpuscular Hemoglobin 29.7 PG (26-34); Mean Corpuscular Volume 90.1 fL (80-100); Monocytes Absolute Auto 800 /uL (0-900); Monocytes Percent Auto 8.4 % (3-14); Neutrophils Absolute Auto 5000 /uL (1500-7000); Neutrophils Percent Auto 55.7 % (50-75); Platelet Count 254 X10^3/uL (150-400); Red Blood Cell Count 4.24 X10^6/uL (4.0-5.2); Red Cell Distribution Width 12.9 % (11.6-14.8)
[2021-08-11] MEDS: SODIUM CHLORIDE 0.9% 1,000 ML 1000 ML IV (02:48)
[2021-08-11 02:49] LABS: Alanine Aminotransferase 13 IU/L (<35); Albumin Globulin Ratio 1.4 (1.0-2.8); Alkaline Phosphatase 65 U/L (38-126); Aspartate Aminotransferase 24 IU/L (14-36); Bilirubin Total 0.4 mg/dL (0.2-1.3); Blood Urea Nitrogen 22 mg/dL (7-17); Calcium 9.7 mg/dL (8.4-10.2); Carbon Dioxide 27 mmol/L (22-32); Chloride 103 mmol/L (98-107); Estimated Glomerular Filt Rate > 60.0 mL/min (>60); Globulin 2.9 g/dL (1.7-4.1); Glucose 171 mg/dL (80-110); HEMOLYSIS 15 (0-50); Lipase 51 U/L (23-300); Sodium 137 mmol/L (137-145); Total Protein 6.9 g/dL (6.3-8.2)
--- NOTE | 2021-08-11 03:02 | ED_ITS ---
HPI - General Adult General Chief complaint: Nausea/Vomiting/Diarrhea Stated complaint: N/V/D Time Seen by Provider: 08/11/21 02:17 Source: patient and EMS Mode of arrival: Ambulatory Limitations: no limitations History of Present Illness HPI narrative: 75-year-old woman with history of diabetes, hypertension, hyper lipidemia presents with the acute onset of nausea vomiting and diarrhea. The nausea awoke from sleep she had a single episode of emesis and a couple episodes of loose diarrhea during these episodes she did note that she was somewhat diaphoretic. She complains of being significantly weak but both the nausea and the diaphoresis have resolved. She states that today she was in her usual state of health and had not noted any fevers, cough, chills, abdominal pain, vomiting, diarrhea, chest pain, palpitations, orthopnea, dyspnea. She does not recall eating any unusual foods that might have caused this. She does live alone so there is no one else for comparison in terms of foods. Related Data Home Medications Medication Instructions Recorded Confirmed ASPIRIN (#ASPIRIN) 325 mg PO Q DAY #0 07/06/12 glipizide 10 mg tablet (Glucotrol) 10 mg PO BID #0 07/06/12 hydrochlorothiazide 25 mg tablet 25 mg PO QDAY #0 07/06/12 lisinopril 10 mg tablet 10 mg PO BID #0 07/06/12 Pravastatin Sodium (PRAVASTATIN 40 mg PO HS #0 07/11/12 SODIUM) diltiazem HCl 180 mg 180 mg PO Q DAY #0 07/11/12 capsule,extended release 24 hr insulin aspart U-100 100 unit/mL #0 01/14/13 subcutaneous solution (Novolog U-100 Insulin aspart) pramipexole 0.125 mg tablet 0.125 mg PO BID #0 07/22/13 (Mirapex) Previous Rx's Medication Instructions Recorded Syringes: 1cc U-100 Insulin syr SQ BID #100 08/17/16 Syringe 25g x 1 insulin glargine 100 unit/mL 20 unit SQ HS #10 ml 08/17/16 subcutaneous solution (Lantus U-100 Insulin) ondansetron 4 mg disintegrating 4 mg PO Q4H PRN #14 tab 07/04/19 tablet Allergies Allergy/AdvReac Type Severity Reaction Status Date / Time Sulfa (Sulfonamide Allergy Intermediate CONVULSIONS Verified 07/04/19 04:29 Antibiotics) A CHILD; RASH AN ADULT Review of Systems Review of Systems Narrative: Remainder of complete review of systems is otherwise unremarkable except for that included in the HPI. Patient History Medical History (Updated 08/11/21 @ 04:07 by Odalys Zaragoza MD) Hypertension IDDM (insulin dependent diabetes mellitus) Surgical History History of cataract removal with insertion of prosthetic lens History of cataract removal with insertion of prosthetic lens Status post cholecystectomy Status post knee surgery Family History Brother Age: 58 Heart disease Father Heart disease Grandfather Diabetes mellitus Mother Age: 92 Alzheimer's disease Diabetes mellitus Sister Diabetes mellitus Sister Age: 70 Diabetes mellitus Hypertension Social History Smoking Status: Never smoker Smoking Status: Never smoker alcohol intake frequency: 0-2 drinks per day Substance Use Type: does not use Exam Narrative Exam Narrative: General: Healthy appearing, in no acute distress. Able to give a complete and coherent history. Well-nourished well-developed HEENT: Moist mucous membranes, normal sclera with reactive pupils, Respiratory: Lungs are clear to auscultation, no wheezing no rales no rhonchi. Full and symmetrical air movement Cardiac: Regular rate and rhythm no murmurs no bruits Abdomen: Soft, nontender, good bowel tones, no flank pain Skin: Warm and dry, no rashes Neurologic: Grossly neurologically intact with no obvious asymmetries or abnormalities Extremities: No trauma, well perfused Psych: Cooperative, appropriate insight and affect Initial Vital Signs Initial Vital Signs: Vital Signs Temperature 97.3 F L 08/11/21 02:10 Pulse Rate 80 08/11/21 02:10 Respiratory Rate 18 08/11/21 02:10 Blood Pressure 183/79 H 08/11/21 02:10 Pulse Oximetry 98 08/11/21 02:10 Course Orders Ordered: ED Orders 08/11/21 02:25 Complete Blood Count AUTO DIFF Stat Comprehensive Metabolic Panel Stat Lipase Stat Magnesium Stat Discontinued Medications Sodium Chloride (Normal Saline 0.9%) 1,000 mls @ 1,000 mls/hr IV BOLUS ONE Stop: 08/11/21 03:34 Last Infusion: 08/11/21 03:54 Dose: 0 mls/hr Documented by: Admin: 08/11/21 02:48 Dose: 1,000 mls/hr Documented by: DARIANA Vital Signs Vital signs: Vital Signs - 8 hr 08/11/21 02:10 Temperature 97.3 F L Pulse Rate 80 Respiratory Rate 18 Blood Pressure 183/79 H Pulse Oximetry 98 Medical Decision Making Lab Data Result diagrams: 08/11/21 02:25 08/11/21 02:25 Labs: Lab Results 08/11/21 08/11/21 Range/Units 02:25 02:25 WBC 9.0 (4.5-11.0) X10^3/uL RBC 4.24 (4.0-5.2) X10^6/uL Hgb 12.6 (12.0-16.0) g/dL Hct 38.2 (36-46) % MCV 90.1 (80-100) fL MCH 29.7 (26-34) PG MCHC 32.9 (30-36) % RDW 12.9 (11.6-14.8) % Plt Count 254 (150-400) X10^3/uL Neut % (Auto) 55.7 (50-75) % Lymph % (Auto) 32.7 (25-40) % [place] % (Auto) 8.4 (3-14) % Eos % (Auto) 2.4 (2-4) % Baso % (Auto) 0.8 (0-2) % Neut # (Auto) 5000 (6638-0848) /uL Lymph # (Auto) 2900 (9217-2807) /uL [place] # (Auto) 800 (0-900) /uL Eos # (Auto) 200 (0-450) /uL Baso # (Auto) 100 (0-100) /uL Sodium 137 (137-145) mmol/L Potassium 4.0 (3.4-5.1) mmol/L Chloride 103 (98-107) mmol/L Carbon Dioxide 27 (22-32) mmol/L BUN 22 H (7-17) mg/dL Creatinine 0.88 (0.52-1.04) mg/dL Estimated GFR > 60.0 (>60) mL/min BUN/Creatinine Ratio 25.0 H (6-22) Glucose 171 H (80-110) mg/dL Calcium 9.7 (8.4-10.2) mg/dL Magnesium 2.0 (1.6-2.3) mg/dL Total Bilirubin 0.4 (0.2-1.3) mg/dL AST 24 (14-36) IU/L ALT 13 (<35) IU/L Alkaline Phosphatase 65 (38-126) U/L Total Protein 6.9 (6.3-8.2) g/dL Albumin 4.0 (3.5-5.0) g/dL Globulin 2.9 (1.7-4.1) g/dL Albumin/Globulin Ratio 1.4 (1.0-2.8) Lipase 51 (23-300) U/L MDM Narrative Medical decision making narrative: 75-year-old woman with acute onset vomiting than diarrhea. Labs are entirely unremarkable and symptoms have completely resolved at this point. No evidence of infection, heart attack, obstruction or surgical abdomen. Suspect that this is a isolated food related incident. Findings reviewed with patient questions are answered and she is safe for home discharge Discharge Plan Departure Patient Disposition: Home Clinical Impression: Nausea, Vomiting, and Diarrhea Instructions: Nausea and Vomiting-Adult Activity Restrictions/Additional Instructions: Thank you for coming in this evening Your blood work was very reassuring. There is no sign of acute infection, liver failure renal failure or other significant complications. Your exam does not suggest any type of obstruction or surgical abdomen. I suspect that this is related to something that you ate earlier today and that mercy certainly sounds suspicious. I hope you feel better Prescriptions: No Action lisinopril 10 MG tablet 10 mg PO BID Qty: 0 RF: 0 ASPIRIN (#ASPIRIN) 325 mg PO Q DAY Qty: 0 RF: 0 glipizide [Glucotrol] 10 MG tablet 10 mg PO BID Qty: 0 RF: 0 hydrochlorothiazide 25 MG tablet 25 mg PO QDAY Qty: 0 RF: 0 diltiazem HCl 180 MG capsule,extended release 24hr 180 mg PO Q DAY Qty: 0 RF: 0 Pravastatin Sodium (PRAVASTATIN SODIUM) 40 mg PO HS Qty: 0 RF: 0 insulin aspart U-100 [Novolog U-100 Insulin aspart] 100 UNIT/1 ML solution Qty: 0 RF: 0 pramipexole [Mirapex] 0.125 MG tablet 0.125 mg PO BID Qty: 0 RF: 0 insulin glargine [Lantus U-100 Insulin] 100 UNIT/1 ML solution 20 unit SQ HS Qty: 10 RF: 3 Syringes: 1cc U-100 Insulin Syringe 25g x 1 SQ BID Qty: 100 RF: 3 ondansetron 4 mg tablet,disintegrating 4 mg PO Q4H PRN (Reason: nausea and vomiting) Qty: 14 RF: 0 Referrals: Roland Carbone MD [Primary Care Provider] -
[2021-08-11 07:23] VITALS: BP 126/58; PULSE 67; RESP 15; O2SAT 98
== END 2021-08-11 07:24 | disposition home or self-care (01) ==
PROVIDERS: Emergency Provider Emergency Medicine; PCP Family Medicine
DX: R11.2 Nausea with vomiting, unspecified (principal); R19.7 Diarrhea, unspecified
CPT/HCPCS: 36415; 80053; 83690; 83735; 85025; 96360; 99284

== ENCOUNTER 2021-10-02 02:32 | Emergency (ER) | payer MEDICARE, OTHER, SELFPAY ==
[2021-10-02] VITALS (19 sets, daily range): BP systolic 88–141; BP diastolic 51–67; PULSE 49–74; RESP 17–24; O2SAT 97–100; BMI 28.3
--- NOTE | 2021-10-02 02:52 | DI.CT.S_ITS ---
PROCEDURE: CT HEAD/BRAIN WO CON INDICATIONS: syncope TECHNIQUE: Noncontrast 4.5 mm thick angled axial sections acquired from the foramen magnum to the vertex, with coronal and sagittal reformats. For radiation dose reduction, the following was used: automated exposure control, adjustment of mA and/or kV according to patient size. COMPARISON: None. FINDINGS: Image quality: Excellent. CSF spaces: Basal cisterns are patent. No extra-axial fluid collections. Ventricles are normal in size and shape. Brain: No midline shift. No intracranial masses or hemorrhage. Cortés-white matter interface is normal. 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 Skull and face: Calvarium and visualized facial bones are intact, without suspicious lesions. Sinuses: Visualized sinuses and mastoids are clear. IMPRESSION: No acute intracranial abnormality. Comment: Final report is concordant with preliminary interpretation by [facility] Dictated by: Bal Perez M.D. on 10/02/2021 at 6:51 on 10/02/2021 at 6:52 Approved by: Bal Perez M.D.
[2021-10-02 03:05] LABS: Alanine Aminotransferase 12 IU/L (<35); Albumin 3.7 g/dL (3.5-5.0); Albumin Globulin Ratio 1.2 (1.0-2.8); Alkaline Phosphatase 73 U/L (38-126); Aspartate Aminotransferase 19 IU/L (14-36); BUN Creatinine Ratio 24.7 (6-22); Bilirubin Total 0.3 mg/dL (0.2-1.3); Blood Urea Nitrogen 24 mg/dL (7-17); Calcium 9.7 mg/dL (8.4-10.2); Carbon Dioxide 27 mmol/L (22-32); Chloride 102 mmol/L (98-107); Creatine Kinase 23 U/L (30-135); Estimated Glomerular Filt Rate 55.7 mL/min (>60); Glucose 199 mg/dL (80-110); HEMOLYSIS < 15 (0-50); Potassium 3.9 mmol/L (3.4-5.1); Sodium 135 mmol/L (137-145); Total Protein 6.7 g/dL (6.3-8.2)
[2021-10-02 03:06] LABS: Add Manual Diff / Slide Review NO; Basophils Absolute Auto 100 /uL (0-100); Basophils Percent Auto 0.7 % (0-2); Eosinophils Absolute Auto 200 /uL (0-450); Eosinophils Percent Auto 2.2 % (2-4); Hematocrit 36.9 % (36-46); Hemoglobin 12.5 g/dL (12.0-16.0); Lymphocytes Absolute Auto 5800 /uL (1100-4500); Lymphocytes Percent Auto 52.6 % (25-40); Mean Corpuscular Hemoglobin 29.9 PG (26-34); Mean Corpuscular Volume 87.9 fL (80-100); Monocytes Absolute Auto 800 /uL (0-900); Monocytes Percent Auto 7.6 % (3-14); Neutrophils Absolute Auto 4100 /uL (1500-7000); Neutrophils Percent Auto 36.9 % (50-75); Platelet Count 248 X10^3/uL (150-400); Red Cell Distribution Width 12.5 % (11.6-14.8)
[2021-10-02 03:16] LABS: Troponin I < 0.012 ng/mL (0.01-0.034)
[2021-10-02] MEDS: SODIUM CHLORIDE 0.9% 1,000 ML 1000 ML IV (03:20)
--- NOTE | 2021-10-02 03:46 | ED_ITS ---
HPI - Syncope General Chief Complaint: Syncope Stated Complaint: found unconsious on floor Time Seen by Provider: 10/02/21 02:39 Source: patient and family Mode of arrival: Family Vehicle Limitations: no limitations History of Present Illness HPI narrative: Patient is a 76-year-old female history of insulin-dependent diabetes, hypertension, hyperlipidemia presenting today with syncopal episode. She states she fell asleep on the couch she got up to use the restroom she felt extremely dizzy and lightheaded she remembers grabbing onto the table and passing onto the floor. Her son heard her fall came rushing out. She had a brief loss of consciousness but quickly came around. She said that she knew that she was going to pass out. The son checked her glucose at home it was over 200. She had no numbness tingling or weakness. She is not on any antiplatelet or anticoagulation medication. She is overall feeling better. She denies drinking any alcohol this evening, in fact she does not drink alcohol. Related Data Home Medications Medication Instructions Recorded Confirmed ASPIRIN (#ASPIRIN) 325 mg PO Q DAY #0 07/06/12 glipizide 10 mg tablet (Glucotrol) 10 mg PO BID #0 07/06/12 hydrochlorothiazide 25 mg tablet 25 mg PO QDAY #0 07/06/12 lisinopril 10 mg tablet 10 mg PO BID #0 07/06/12 Pravastatin Sodium (PRAVASTATIN 40 mg PO HS #0 07/11/12 SODIUM) diltiazem HCl 180 mg 180 mg PO Q DAY #0 07/11/12 capsule,extended release 24 hr insulin aspart U-100 100 unit/mL #0 01/14/13 subcutaneous solution (Novolog U-100 Insulin aspart) pramipexole 0.125 mg tablet 0.125 mg PO BID #0 07/22/13 (Mirapex) Previous Rx's Medication Instructions Recorded Syringes: 1cc U-100 Insulin syr SQ BID #100 08/17/16 Syringe 25g x 1 insulin glargine 100 unit/mL 20 unit (0.2 mL) SQ HS #10 ml 08/17/16 subcutaneous solution (Lantus U-100 Insulin) ondansetron 4 mg disintegrating 4 mg PO Q4H PRN #14 tab 07/04/19 tablet cephalexin 500 mg capsule 500 mg PO BID 3 Days #6 cap 10/02/21 Allergies Allergy/AdvReac Type Severity Reaction Status Date / Time Sulfa (Sulfonamide Allergy Intermediate CONVULSIONS Verified 07/04/19 04:29 Antibiotics) A CHILD; RASH AN ADULT Review of Systems Review of Systems Narrative: GENERAL: Denies chills, fatigue, malaise, fever, sweats, travel HEENT: Denies sinus pain, ear pain, sore throat, difficulty swallowing, neck pain RESPIRATORY: Denies dyspnea, cough, wheezing, hemoptysis, sputum. CARDIOVASCULAR: Denies chest pain, palpitations, orthopnea, edema GASTROINTESTINAL: Denies nausea, vomiting, abdominal pain, diarrhea, constipation, melena. : Denies dysuria, frequency, incontinence, hematuria, urinary retention, flank pain. MUSCULOSKELETAL: Denies weakness, joint pain, or bony pain SKIN: No rash, no erythema, no pruritus NEUROLOGIC: See HPI PSYCHIATRIC: No concerning psychosocial issues. 12 point review of systems is negative except for those stated above and HPI Patient History Medical History (Updated 10/02/21 @ 04:42 by Kelsy Ackerman DO) Hypertension IDDM (insulin dependent diabetes mellitus) Surgical History History of cataract removal with insertion of prosthetic lens History of cataract removal with insertion of prosthetic lens Status post cholecystectomy Status post knee surgery Family History Brother Age: 59 Heart disease Father Heart disease Grandfather Diabetes mellitus Mother Age: 93 Alzheimer's disease Diabetes mellitus Sister Diabetes mellitus Sister Age: 71 Diabetes mellitus Hypertension Social History Smoking Status: Never smoker Smoking Status: Never smoker alcohol intake frequency: 0-2 drinks per day Substance Use Type: does not use Exam Initial Vital Signs Initial Vital Signs: Vital Signs Pulse Rate 74 10/02/21 02:43 Respiratory Rate 18 10/02/21 02:43 Blood Pressure 141/63 H 10/02/21 02:43 Pulse Oximetry 99 10/02/21 02:43 GENERAL: Alert pleasant 76-year-old female and in no acute distress. HEENT: Head atraumatic,EOMI, pupils reactive, face symmetric, moist mucous membranes CARDIOVASCULAR: Regular rate and rhythm without murmurs, rubs or gallops. RESPIRATORY: Breath sounds equal bilaterally, no wheezes rales or rhonchi. ABDOMEN: Soft, nontender. Normoactive bowel sounds all 4 quadrants. No guarding or rebound. EXTREMITIES: Normal range of motion, no clubbing or edema. Neurovascularly intact NEUROLOGICAL: Alert and oriented x4.Normal gait and speech. Family Consumer Scientist strength equal bilaterally good [id number] good [id number] no aphasia or disc aphasia sensation intact in all extremity SKIN: Warm, dry, no laceration, no petechiae, no rashes or lesions. Scores NIH Stroke Scale Level of Conciousness: Alert, keenly responsive Ask month/age: Answers both questions correctly. Open/close eyes, close hand: Performs both tasks correctly Best gaze horizontal: Normal Visual cabral: No visual loss Facial palsy: Normal symetrical movement Left arm drift: No drift for full 10 sec Right arm drift: No drift for full 10 sec Left leg drift: No drift for full 5 sec Right leg drift: No drift for full 5 sec Limb ataxia: Absent Sensory on face/arms/legs: Normal, no sensory loss Best language: No aphasia, normal Dysarthria: Normal Extinction or inattention: No abnormality Total NIH Stroke scale score: 0 Course Orders Ordered: ED Orders 10/02/21 02:48 Complete Blood Count AUTO DIFF Stat Comprehensive Metabolic Panel Stat Troponin & CK Cardiac Panel Stat 10/02/21 02:52 CT head/brain wo con Stat 10/02/21 04:15 Urinalysis and Microscopic Stat Urine Culture Stat Discontinued Medications Cefazolin Sodium (Cephalexin 250 Mg Prepack) 1 bottle MISC SEEINSTR ONE Stop: 10/02/21 04:44 Last Admin: 10/02/21 05:02 Dose: 2 tab Documented by: NATALI Sodium Chloride (Normal Saline 0.9%) 1,000 mls @ 1,000 mls/hr IV CONT JACKSON Last Infusion: 10/02/21 04:38 Dose: 0 mls/hr Documented by: Admin: 10/02/21 03:20 Dose: 1,000 mls/hr Documented by: NATALI Vital Signs Vital signs: Vital Signs - 8 hr 10/02/21 02:43 10/02/21 02:54 10/02/21 02:55 Pulse Rate 74 68 71 Pulse Rate [Orthostatic Lying] Pulse Rate [Orthostatic Sitting] Pulse Rate [Orthostatic Standing] Respiratory Rate 18 22 17 Blood Pressure 141/63 H 107/54 L Blood Pressure [Orthostatic Lying] Blood Pressure [Orthostatic Sitting] Blood Pressure [Orthostatic Standing] Pulse Oximetry 99 100 97 10/02/21 03:05 10/02/21 03:19 10/02/21 03:30 Pulse Rate 62 57 L Pulse Rate [Orthostatic Lying] Pulse Rate [Orthostatic Sitting] Pulse Rate [Orthostatic Standing] Respiratory Rate 18 17 Blood Pressure 101/56 L 88/51 L Blood Pressure [Orthostatic Lying] Blood Pressure [Orthostatic Sitting] Blood Pressure [Orthostatic Standing] Pulse Oximetry 100 98 97 10/02/21 03:32 10/02/21 03:33 10/02/21 03:37 Pulse Rate 64 59 L 57 L Pulse Rate [Orthostatic Lying] Pulse Rate [Orthostatic Sitting] Pulse Rate [Orthostatic Standing] Respiratory Rate 19 21 17 Blood Pressure 97/53 L 107/54 L 109/53 L Blood Pressure [Orthostatic Lying] Blood Pressure [Orthostatic Sitting] Blood Pressure [Orthostatic Standing] Pulse Oximetry 99 99 98 10/02/21 03:40 10/02/21 03:43 10/02/21 03:45 Pulse Rate 65 66 Pulse Rate [Orthostatic Lying] 57 L Pulse Rate [Orthostatic Sitting] 64 Pulse Rate [Orthostatic Standing] 66 Respiratory Rate 20 21 Blood Pressure 130/61 120/59 L Blood Pressure [Orthostatic Lying] 109/53 L Blood Pressure [Orthostatic Sitting] 130/61 Blood Pressure [Orthostatic Standing] 120/59 L Pulse Oximetry 99 98 10/02/21 04:00 10/02/21 04:08 10/02/21 04:16 Pulse Rate 56 L 66 69 Pulse Rate [Orthostatic Lying] Pulse Rate [Orthostatic Sitting] Pulse Rate [Orthostatic Standing] Respiratory Rate 19 24 20 Blood Pressure 112/53 L 141/61 H 139/67 Blood Pressure [Orthostatic Lying] Blood Pressure [Orthostatic Sitting] Blood Pressure [Orthostatic Standing] Pulse Oximetry 97 97 100 10/02/21 04:28 10/02/21 04:30 10/02/21 04:31 Pulse Rate 72 54 L 49 L Pulse Rate [Orthostatic Lying] Pulse Rate [Orthostatic Sitting] Pulse Rate [Orthostatic Standing] Respiratory Rate 22 19 19 Blood Pressure 102/52 L Blood Pressure [Orthostatic Lying] Blood Pressure [Orthostatic Sitting] Blood Pressure [Orthostatic Standing] Pulse Oximetry 98 98 98 10/02/21 05:00 Pulse Rate 56 L Pulse Rate [Orthostatic Lying] Pulse Rate [Orthostatic Sitting] Pulse Rate [Orthostatic Standing] Respiratory Rate 18 Blood Pressure Blood Pressure [Orthostatic Lying] Blood Pressure [Orthostatic Sitting] Blood Pressure [Orthostatic Standing] Pulse Oximetry 97 MDM - Syncope Lab Data Result diagrams: 10/02/21 02:48 10/02/21 02:48 Labs: Lab Results 10/02/21 10/02/21 10/02/21 Range/Units 02:48 02:48 04:15 WBC 11.0 (4.5-11.0) X10^3/uL RBC 4.20 (4.0-5.2) X10^6/uL Hgb 12.5 (12.0-16.0) g/dL Hct 36.9 (36-46) % MCV 87.9 (80-100) fL MCH 29.9 (26-34) PG MCHC 34.0 (30-36) % RDW 12.5 (11.6-14.8) % Plt Count 248 (150-400) X10^3/uL Neut % (Auto) 36.9 L (50-75) % Lymph % (Auto) 52.6 H (25-40) % [place] % (Auto) 7.6 (3-14) % Eos % (Auto) 2.2 (2-4) % Baso % (Auto) 0.7 (0-2) % Neut # (Auto) 4100 (3250-2907) /uL Lymph # (Auto) 5800 H (4920-6935) /uL [place] # (Auto) 800 (0-900) /uL Eos # (Auto) 200 (0-450) /uL Baso # (Auto) 100 (0-100) /uL Sodium 135 L (137-145) mmol/L Potassium 3.9 (3.4-5.1) mmol/L Chloride 102 (98-107) mmol/L Carbon Dioxide 27 (22-32) mmol/L BUN 24 H (7-17) mg/dL Creatinine 0.97 (0.52-1.04) mg/dL Estimated GFR 55.7 L (>60) mL/min BUN/Creatinine Ratio 24.7 H (6-22) Glucose 199 H (80-110) mg/dL Calcium 9.7 (8.4-10.2) mg/dL Total Bilirubin 0.3 (0.2-1.3) mg/dL AST 19 (14-36) IU/L ALT 12 (<35) IU/L Alkaline Phosphatase 73 (38-126) U/L Total Creatine Kinase 23 L (30-135) U/L CK-MB (CK-2) TNP CK-MB (CK-2) Rel Index TNP Troponin I < 0.012 (0.01-0.034) ng/mL Total Protein 6.7 (6.3-8.2) g/dL Albumin 3.7 (3.5-5.0) g/dL Globulin 3.0 (1.7-4.1) g/dL Albumin/Globulin Ratio 1.2 (1.0-2.8) Urine Color Yellow Urine Appearance Turbid Urine pH 5.5 (4.5-8.0) Ur Specific [place] 1.020 (1.000-1.035) Urine Protein 1+ H (Negative) Urine Glucose (UA) Negative (Negative) g/dL Urine Ketones Negative (NEGATIVE) Urine Occult Blood Trace-lysed (Negative) Urine Nitrate Negative (Negative) Urine Bilirubin Negative (NEGATIVE) Urine Urobilinogen 0.2 (0.2) E.U./dL Ur Leukocyte Esterase 2+ H (NEGATIVE) Urine RBC 0-1/hpf (0-5/HPF) Urine WBC 30-100/hpf H (0-5/HPF) Ur Squamous Epith Cells 0-1 /hpf (0-5/HPF) Ur Transition Epith Cell 0-1/hpf (0-5/HPF) Ur Renal Epithelial Cell 0-1/hpf (0-1/HPF) Urine Bacteria Many (>30) H (None) Hyaline Casts 0-1/lpf (None) Ur Culture Indicated? Specimen cultured Urine Dip Bedside Urine Glucose Negative Bedside Urine Bilirubin - Negative Bedside Urine Ketone - Negative Urine Specific [place] 1.025 Bedside Urine Occult Blood +/- Bedside Urine pH 6.0 Bedside Urine Protein + 30 Bedside Urine Urobilinogen - Negative Bedside Urine Nitrite - Negative Bedside Urine Leukocytes ++ [address] scan - head: Radiologist's Impression: Preliminary report no CT evidence of acute intracranial abnormality. ECG Data Interpretation: Normal sinus MDM Narrative Medical decision making narrative: The sounds of patient had a vasovagal reaction. No focal deficits head CT is negative blood work is overall reassuring. You she is ambulatory to the restroom without any difficulty. Urine does show leukocytes with many bacteria she denies any painful or frequent urination however she did have syncopal episode. This time will treat her 5 days of antibiotics. She is also on Mirapex which can cause orthostatic hypotension this may be contributing to her symptoms as well. I discussed with her if her symptoms return with out infection than her medications may need to be revised. Discharge Plan Departure Patient Disposition: Home Clinical Impression: Vasovagal syncope, Acute UTI Instructions: DI for Syncope in Adults (Fainting), DI for Urinary Tract Infection (UTI) Activity Restrictions/Additional Instructions: *You have been diagnosed with bladder infection, fainting episode *What to do: At this time you are found have a minor bladder infection. His hopefully your symptoms improve with antibiotics. However if you have a recurrent episode your medication Mirapex can cause her blood pressure to drop making you pass out. If you should have a recurrent episode please return to the emergency department. Your medications may need to be revised. *Continue to take medications as directed Keflex 500 mg twice a day for 5 days *Follow up with your primary care provider in 2-3 days or call [phone] *Return to ER if you should have recurrent episode of passing out, fever, conf usion or any new, worsening or concerning symptoms Prescriptions: New cephalexin 500 mg capsule 500 mg PO BID 3 Days Qty: 6 0RF No Action lisinopril 10 MG tablet 10 mg PO BID Qty: 0 0RF ASPIRIN (#ASPIRIN) 325 mg PO Q DAY Qty: 0 0RF glipizide [Glucotrol] 10 MG tablet 10 mg PO BID Qty: 0 0RF hydrochlorothiazide 25 MG tablet 25 mg PO QDAY Qty: 0 0RF diltiazem HCl 180 MG capsule,extended release 24hr 180 mg PO Q DAY Qty: 0 0RF Pravastatin Sodium (PRAVASTATIN SODIUM) 40 mg PO HS Qty: 0 0RF insulin aspart U-100 [Novolog U-100 Insulin aspart] 100 UNIT/1 ML solution Qty: 0 0RF pramipexole [Mirapex] 0.125 MG tablet 0.125 mg PO BID Qty: 0 0RF insulin glargine [Lantus U-100 Insulin] 100 UNIT/1 ML solution 20 unit SQ HS Qty: 10 3RF Syringes: 1cc U-100 Insulin Syringe 25g x 1 SQ BID Qty: 100 3RF ondansetron 4 mg tablet,disintegrating 4 mg PO Q4H PRN (Reason: nausea and vomiting) Qty: 14 0RF Referrals: Roland Carbone MD [Primary Care Provider] -
[2021-10-02 04:28] LABS: Appearance Urine UA TURBID; Bilirubin Urine UA NEGATIVE (NEGATIVE); Color Urine UA YELLOW; Glucose Urine UA NEGATIVE (Negative); Ketones Urine UA NEGATIVE (NEGATIVE); Leukocyte Esterase Urine UA 2+ (NEGATIVE); Nitrite Urine UA NEGATIVE (Negative); Occult Blood Urine UA TRACE-LYSED (Negative); Protein Urine UA 1+ (Negative); Urobilinogen Urine UA 0.2 E.U./dL (0.2)
[2021-10-02 04:29] LABS: pH Urine UA 5.5 (4.5-8.0)
[2021-10-02 04:30] LABS: RBC Urine 0-1/HPF (0-5/HPF); Renal Epithelial Cells Urine 0-1/HPF (0-1/HPF); Squamous Epithelial Cell Urine 0-1 /HPF (0-5/HPF); Transitional Epi Cells Urine 0-1/HPF (0-5/HPF); WBC Urine 30-100/HPF (0-5/HPF)
[2021-10-02 04:31] LABS: Bacteria Urine Many (>30); Culture Indicated Urine Specimen Cultured; Hyaline Casts Urine 0-1/LPF
[2021-10-02] MEDS: cephALEXin 250 MG PREPACK 1 BOTTLE MISC (05:02)
== END 2021-10-02 05:15 | disposition home or self-care (01) ==
PROVIDERS: Emergency Provider Emergency Medicine; PCP Family Medicine
DX: R55 Syncope and collapse (principal); N39.0 Urinary tract infection, site not specified; B95.7 Other staphylococcus as the cause of diseases classified elsewhere; E11.65 Type 2 diabetes mellitus with hyperglycemia; I10 Essential (primary) hypertension; Z79.84 Long term (current) use of oral hypoglycemic drugs; Z79.4 Long term (current) use of insulin
CPT/HCPCS: 36415; 70450; 80053; 81001; 81003; 82550; 84484; 85025; 87077; 87086; 87147; 87186; 93005; 96360; 99284

== ENCOUNTER 2021-12-13 23:57 | Emergency (ER) | payer MEDICARE, OTHER, SELFPAY ==
[2021-12-14] VITALS (9 sets, daily range): BP systolic 125–165; BP diastolic 60–74; PULSE 59–74; RESP 18; TEMP 36.4; O2SAT 97–100; BMI 29.5
--- NOTE | 2021-12-14 00:33 | ED.GENADULT ---
HPI - General Adult General Chief complaint: Dizziness Stated complaint: Dizzy Time Seen by Provider: 12/14/21 00:11 Source: patient and EMS Mode of arrival: EMS History of Present Illness HPI narrative: Patient is a 76-year-old female who is brought in by EMS for evaluation of dizziness. Was a fairly sudden onset. States she was sitting on her couch doing some puzzle in a book when she stood up to placed the book on the counter. States she had a sudden onset unsteadiness. Also had associated nausea and vomiting. No chest pain. No shortness of breath. No vision changes. No headache. Contacted EMS. She did receive a mg of Zofran prior to arrival. Upon my arrival she feels like that she is improved but not completely back to baseline. She apparently has had 2 episodes of this in the past. She used to have meclizine that she carried with her but she does not have this any longer Related Data Home Medications Medication Instructions Recorded Confirmed ASPIRIN (#ASPIRIN) 325 mg PO Q DAY #0 07/06/12 glipizide 10 mg tablet (Glucotrol) 10 mg PO BID #0 07/06/12 hydrochlorothiazide 25 mg tablet 25 mg PO QDAY #0 07/06/12 lisinopril 10 mg tablet 10 mg PO BID #0 07/06/12 Pravastatin Sodium (PRAVASTATIN 40 mg PO HS #0 07/11/12 SODIUM) diltiazem HCl 180 mg 180 mg PO Q DAY #0 07/11/12 capsule,extended release 24 hr insulin aspart U-100 100 unit/mL #0 01/14/13 subcutaneous solution (Novolog U-100 Insulin aspart) pramipexole 0.125 mg tablet 0.125 mg PO BID #0 07/22/13 (Mirapex) Previous Rx's Medication Instructions Recorded Syringes: 1cc U-100 Insulin syr SQ BID #100 08/17/16 Syringe 25g x 1 insulin glargine 100 unit/mL 20 unit (0.2 mL) SQ HS #10 ml 08/17/16 subcutaneous solution (Lantus U-100 Insulin) ondansetron 4 mg disintegrating 4 mg PO Q4H PRN #14 tab 07/04/19 tablet meclizine 25 mg tablet 25 mg PO BID PRN #14 tab 12/14/21 Allergies Allergy/AdvReac Type Severity Reaction Status Date / Time Sulfa (Sulfonamide Allergy Intermediate CONVULSIONS Verified 07/04/19 04:29 Antibiotics) A CHILD; RASH AN ADULT Review of Systems Constitutional Constitutional: Denies fatigue, Denies fever(s) and Denies headache(s) Eyes Eyes: Denies blurry vision and Denies change in vision ENT Ears, Nose, Mouth, and Throat: Denies headache(s) Cardiovascular Cardiovascular: Denies chest pain, Denies rapid heart rate, Denies lightheadedness and Denies dyspnea Respiratory Respiratory: Denies cough and Denies dyspnea Gastrointestinal Gastrointestinal: Denies abdominal pain, Reports nausea and Reports vomiting Musculoskeletal Musculoskeletal: Reports system reviewed and no additional complaints, except as documented Integumentary/Breasts Skin/Breast: Reports system reviewed and no additional complaints, except as documented Neurologic Neurologic: Denies headache(s) Endocrine Endocrine: Denies fatigue Hematologic/Lymphatic On Anticoagulants: No Patient History Medical History Hypertension IDDM (insulin dependent diabetes mellitus) Surgical History History of cataract removal with insertion of prosthetic lens History of cataract removal with insertion of prosthetic lens Status post cholecystectomy Status post knee surgery Family History Brother Age: 59 Heart disease Father Heart disease Grandfather Diabetes mellitus Mother Age: 93 Alzheimer's disease Diabetes mellitus Sister Diabetes mellitus Sister Age: 71 Diabetes mellitus Hypertension Social History Smoking Status: Never smoker Smoking Status: Never smoker alcohol intake frequency: 0-2 drinks per day Substance Use Type: does not use Exam Initial Vital Signs Initial Vital Signs: Vital Signs Temperature 97.6 F 12/14/21 00:05 Pulse Rate 66 12/14/21 00:05 Respiratory Rate 18 12/14/21 00:05 Blood Pressure 160/67 H 12/14/21 00:05 Pulse Oximetry 98 12/14/21 00:05 HENAZ Head: normal to inspection Eyes General: appearance normal, both eyes and all related structures Resp Effort & Inspection: normal respiratory effort Auscultation: clear to auscultation bilaterally Cardio Rate: regular rate Rhythm: regular rhythm GI Inspection: normal to inspection Skin General: no rashes or lesions noted Neuro General: patient alert, patient awake, patient oriented x3 and moves all extremities Cranial Nerves: CN's II-XI intact bilaterally Cognition: normal cognition Speech: speech normal Gait: normal gait Motor: muscle tone normal throughout Extrem General: normal to inspection and capillary refill normal Psych Appearance: grossly normal and well kempt Scores GCS [place] coma scale eye opening: Spontaneous [place] coma scale verbal response: Orientated [place] coma scale motor response: Obey commands [place] coma scale total score: 15 Course Orders Ordered: ED Orders 12/14/21 EKG-12 Lead Routine 12/14/21 00:01 Basic Metabolic Panel Stat Complete Blood Count AUTO DIFF Stat Discontinued Medications Meclizine HCl (Meclizine Hcl 12.5 Mg Tablet) 25 mg PO NOW ONE Stop: 12/14/21 00:45 Last Admin: 12/14/21 00:51 Dose: 25 mg Documented by: NILO Vital Signs Vital signs: Vital Signs - 8 hr 12/14/21 00:05 12/14/21 00:30 12/14/21 00:37 Temperature 97.6 F Pulse Rate 66 62 62 Pulse Rate [Orthostatic Lying] Pulse Rate [Orthostatic Sitting] Pulse Rate [Orthostatic Standing] Respiratory Rate 18 Blood Pressure 160/67 H 165/74 H 146/69 H Blood Pressure [Orthostatic Lying] Blood Pressure [Orthostatic Sitting] Blood Pressure [Orthostatic Standing] Pulse Oximetry 97 99 100 12/14/21 00:38 12/14/21 00:39 12/14/21 00:42 Temperature Pulse Rate 66 74 Pulse Rate [Orthostatic Lying] 74 Pulse Rate [Orthostatic Sitting] 67 Pulse Rate [Orthostatic Standing] 59 L Respiratory Rate Blood Pressure 145/66 H 144/69 H Blood Pressure [Orthostatic Lying] 144/69 H Blood Pressure [Orthostatic Sitting] 145/66 H Blood Pressure [Orthostatic Standing] 146/69 H Pulse Oximetry 99 98 12/14/21 01:00 12/14/21 01:01 12/14/21 01:30 Temperature Pulse Rate 64 60 61 Pulse Rate [Orthostatic Lying] Pulse Rate [Orthostatic Sitting] Pulse Rate [Orthostatic Standing] Respiratory Rate Blood Pressure 136/63 125/60 Blood Pressure [Orthostatic Lying] Blood Pressure [Orthostatic Sitting] Blood Pressure [Orthostatic Standing] Pulse Oximetry 98 100 99 Medical Decision Making Lab Data Lab results reviewed: Yes I reviewed the patient's lab results. Result diagrams: 12/14/21 00:01 12/14/21 00:01 Labs: Lab Results 12/14/21 12/14/21 Range/Units 00:01 00:01 WBC 9.7 (4.5-11.0) X10^3/uL RBC 4.32 (4.0-5.2) X10^6/uL Hgb 12.8 (12.0-16.0) g/dL Hct 38.8 (36-46) % MCV 89.8 (80-100) fL MCH 29.6 (26-34) PG MCHC 33.0 (30-36) % RDW 13.4 (11.6-14.8) % Plt Count 255 (150-400) X10^3/uL Neut % (Auto) 50.4 (50-75) % Lymph % (Auto) 40.0 (25-40) % [place] % (Auto) 6.6 (3-14) % Eos % (Auto) 2.2 (2-4) % Baso % (Auto) 0.8 (0-2) % Neut # (Auto) 4900 (1830-6605) /uL Lymph # (Auto) 3900 (6867-7891) /uL [place] # (Auto) 600 (0-900) /uL Eos # (Auto) 200 (0-450) /uL Baso # (Auto) 100 (0-100) /uL Sodium 136 L (137-145) mmol/L Potassium 3.9 (3.4-5.1) mmol/L Chloride 102 (98-107) mmol/L Carbon Dioxide 30 (22-32) mmol/L BUN 28 H (7-17) mg/dL Creatinine 1.09 H (0.52-1.04) mg/dL Estimated GFR 48.7 L (>60) mL/min BUN/Creatinine Ratio 25.7 H (6-22) Glucose 199 H (80-110) mg/dL Calcium 10.0 (8.4-10.2) mg/dL ECG Data Attestation: I personally reviewed and interpreted this ECG as follows: Prior ECG tracings: available for review Interpretation: Sinus rhythm Ventricular rate is 63 Left axis deviation Normal QRS Normal QTC LVH No ST T wave changes MDM Narrative Medical decision making narrative: Patient's labs EKG and neurologic exam were unremarkable. She received meclizine and this did seem to improve her symptoms tremendously. She was able to stand up and walk around at bedside and felt back to baseline. She apparently has had 2 episodes like this in the past all of which have improved with meclizine. Given her clinical presentation I do suspect this is peripheral vertigo. Low suspicion for TIA/CVA. Have patient continue to take all of her medications as directed and will contact her primary doctor for follow-up. She expressed understanding agreement plan. Discharge Plan Departure Patient Disposition: Home Clinical Impression: Vertigo Instructions: DI for Vertigo Activity Restrictions/Additional Instructions: Continue to take off her medications as directed. Contact your primary doctor for follow-up. Be sure that you are staying hydrated. Return to the emergency department for any new or worsening symptoms. Prescriptions: New meclizine 25 mg tablet 25 mg PO BID PRN (Reason: motion sickness) Qty: 14 0RF No Action lisinopril 10 MG tablet 10 mg PO BID Qty: 0 0RF ASPIRIN (#ASPIRIN) 325 mg PO Q DAY Qty: 0 0RF glipizide [Glucotrol] 10 MG tablet 10 mg PO BID Qty: 0 0RF hydrochlorothiazide 25 MG tablet 25 mg PO QDAY Qty: 0 0RF diltiazem HCl 180 MG capsule,extended release 24hr 180 mg PO Q DAY Qty: 0 0RF Pravastatin Sodium (PRAVASTATIN SODIUM) 40 mg PO HS Qty: 0 0RF insulin aspart U-100 [Novolog U-100 Insulin aspart] 100 UNIT/1 ML solution Qty: 0 0RF pramipexole [Mirapex] 0.125 MG tablet 0.125 mg PO BID Qty: 0 0RF insulin glargine [Lantus U-100 Insulin] 100 UNIT/1 ML solution 20 unit SQ HS Qty: 10 3RF Syringes: 1cc U-100 Insulin Syringe 25g x 1 SQ BID Qty: 100 3RF ondansetron 4 mg tablet,disintegrating 4 mg PO Q4H PRN (Reason: nausea and vomiting) Qty: 14 0RF Referrals: Roland Carbone MD [Primary Care Provider] -
--- NOTE | 2021-12-14 00:43 | PC.NURSE ---
pt was dizzy with position changes
[2021-12-14 00:47] LABS: BUN Creatinine Ratio 25.7 (6-22); Blood Urea Nitrogen 28 mg/dL (7-17); Carbon Dioxide 30 mmol/L (22-32); Chloride 102 mmol/L (98-107); Estimated Glomerular Filt Rate 48.7 mL/min (>60); Glucose 199 mg/dL (80-110); HEMOLYSIS < 15 (0-50); Potassium 3.9 mmol/L (3.4-5.1); Sodium 136 mmol/L (137-145)
[2021-12-14] MEDS: MECLIZINE HCL 12.5 MG TABLET 25 MG PO (00:51)
[2021-12-14 00:54] LABS: Add Manual Diff / Slide Review NO; Basophils Absolute Auto 100 /uL (0-100); Basophils Percent Auto 0.8 % (0-2); Eosinophils Absolute Auto 200 /uL (0-450); Eosinophils Percent Auto 2.2 % (2-4); Hematocrit 38.8 % (36-46); Hemoglobin 12.8 g/dL (12.0-16.0); Lymphocytes Absolute Auto 3900 /uL (1100-4500); Mean Corpuscular Hemoglobin 29.6 PG (26-34); Mean Corpuscular Volume 89.8 fL (80-100); Monocytes Absolute Auto 600 /uL (0-900); Monocytes Percent Auto 6.6 % (3-14); Neutrophils Absolute Auto 4900 /uL (1500-7000); Neutrophils Percent Auto 50.4 % (50-75); Platelet Count 255 X10^3/uL (150-400); Red Blood Cell Count 4.32 X10^6/uL (4.0-5.2); Red Cell Distribution Width 13.4 % (11.6-14.8); White Blood Cell Count 9.7 X10^3/uL (4.5-11.0)
--- NOTE | 2021-12-14 02:04 | PC.NURSE ---
pt also had n/v with the dizziness
== END 2021-12-14 02:12 | disposition home or self-care (01) ==
PROVIDERS: Emergency Provider Emergency Medicine; PCP Family Medicine
DX: R42 Dizziness and giddiness (principal)
CPT/HCPCS: 80048; 85025; 93005; 93010; 99283; 99284

== ENCOUNTER 2022-05-17 21:36 | Emergency (ER) | payer MEDICARE, OTHER, SELFPAY ==
[2022-05-17] VITALS (8 sets, daily range): BP systolic 120–137; BP diastolic 62–83; PULSE 52–66; RESP 20; TEMP 36.8; O2SAT 97–99; BMI 23.3
--- NOTE | 2022-05-17 21:54 | DI.CT.S_ITS ---
PROCEDURE: CT ABDOMEN PELVIS W CON INDICATIONS: left lower quadrant pain TECHNIQUE: After the administration of IV contrast, axial sections were acquired from the lung bases to the pubic symphysis. Coronal and sagittal reformats were performed. For radiation dose reduction, the following was used: automated exposure control, adjustment of mA and/or kV according to patient size. COMPARISON: None. FINDINGS: Image quality: There is metallic streak artifact from patient's left hip prosthesis limiting evaluation. Lung bases: There is atelectasis and scarring in the lung bases. Heart: Heart size is enlarged. There is a small hiatal hernia. ABDOMEN: Liver: There is a small nonspecific oval hypodense lesion within the liver measuring up to 1.0 cm on series 2, image 10. Gallbladder: Within normal limits without calcified gallstones. Biliary ducts: No biliary ductal dilatation. Pancreas: There is moderate fatty infiltration of the pancreas. No pancreatic duct dilatation or peripancreatic fluid.. No discrete pancreatic mass identified. Spleen: Normal in size. Adrenal Glands: No adrenal nodules. Kidneys and Ureters: No hydronephrosis. There is a small left renal cortical cyst. Mild nonspecific perinephric stranding bilaterally. Stomach and Bowel: Stomach and small bowel loops are normal in caliber and wall thickness. No pericecal inflammatory changes to suggest appendicitis. There is segmental wall thickening within the descending and sigmoid colon consistent with a colitis. Colonic diverticulosis is present without acute diverticulitis. Peritoneum: No abnormal intraperitoneal fluid. No free air. Ventral Wall: No hernia. Abdominal Nodes: No retroperitoneal or mesenteric adenopathy by size criteria. Vessels: Aorta and inferior vena cava are normal in size. PELVIS: Pelvic Organs: Uterus is surgically absent. Bladder: Unremarkable. Pelvic Nodes: No enlarged lymph nodes. Miscellaneous: No inguinal hernias are seen. Bones: There is mild superior endplate scalloping within the T12 vertebral body with a small Schmorl's node. Mild anterolisthesis present at L4-5. Visualized osseous structures demonstrate no suspicious focal lesions. IMPRESSION: 1. Segmental wall thickening of the descending and sigmoid colon with mild fat stranding consistent with a nonspecific infectious or inflammatory colitis. Given the degree of wall thickening, consider follow-up colonoscopy to exclude an underlying mass. 2. Colonic diverticulosis without acute diverticulitis. Dictated by: Pipo Isaacs M.D. on 05/17/2022 at 23:17 Approved by: Pipo Isaacs M.D. on 05/17/2022 at 23:23
--- NOTE | 2022-05-17 21:57 | ED_ITS ---
HPI - Abdominal Pain General Chief Complaint: Abdominal Pain Stated Complaint: Abd Pain Time Seen by Provider: 05/17/22 21:48 Source: patient Mode of arrival: EMS History of Present Illness HPI narrative: Patient brought here by ambulance from home. Daughter at bedside. Patient is a retired nurse. Patient had sudden onset left lower quadrant pain about an hour ago. [place] like she needed to have bowel movement and urinate. Was not able to. Had nausea but no vomiting. EMS state blood pressure was systolic 88. 250 mL of normal saline and given and now normotensive. Patient is bradycardic. Denies any chest pain or back pain. Denies any abdominal pain now. No urinary complaints no hematuria. No chest pain no syncope. Related Data Home Medications Medication Instructions Recorded Confirmed ASPIRIN (#ASPIRIN) 325 mg PO Q DAY ##0 07/06/12 glipizide 10 mg tablet (Glucotrol) 10 mg PO BID ##0 07/06/12 hydrochlorothiazide 25 mg tablet 25 mg PO QDAY ##0 07/06/12 lisinopril 10 mg tablet 10 mg PO BID ##0 07/06/12 Pravastatin Sodium (PRAVASTATIN 40 mg PO HS ##0 07/11/12 SODIUM) diltiazem HCl 180 mg 180 mg PO Q DAY ##0 07/11/12 capsule,extended release 24 hr insulin aspart U-100 100 unit/mL ##0 01/14/13 subcutaneous solution (Novolog U-100 Insulin aspart) pramipexole 0.125 mg tablet 0.125 mg PO BID ##0 07/22/13 (Mirapex) Previous Rx's Medication Instructions Recorded Syringes: 1cc U-100 Insulin syr SQ BID ##100 08/17/16 Syringe 25g x 1 insulin glargine 100 unit/mL 20 unit (0.2 mL) SQ HS #10 mL 08/17/16 subcutaneous solution (Lantus U-100 Insulin) ondansetron 4 mg disintegrating 4 mg PO Q4H PRN nausea and 07/04/19 tablet vomiting #14 tabs meclizine 25 mg tablet 25 mg PO BID PRN motion sickness 12/14/21 #14 tabs cephalexin 500 mg capsule 500 mg PO BID #10 caps 05/18/22 Allergies Allergy/AdvReac Type Severity Reaction Status Date / Time Sulfa (Sulfonamide Allergy Intermediate CONVULSIONS Verified 07/04/19 04:29 Antibiotics) A CHILD; RASH AN ADULT Review of Systems Review of Systems Narrative: GENERAL: Denies chills, fatigue, malaise, fever, sweats. HEENT: Denies sinus pain, ear pain, sore throat RESPIRATORY: Denies dyspnea, cough CARDIOVASCULAR: Denies chest pain, palpitations GASTROINTESTINAL: Positive for nausea, negative for vomiting, positive for abdominal pain : Denies dysuria, frequency, hematuria MUSCULOSKELETAL: denies muscle or bony pain SKIN: Denies rash, skin lesions NEUROLOGIC: Denies weakness, numbness ROS Unobtainable: All systems reviewed & are unremarkable except as noted in HPI and below Patient History Medical History (Updated 05/18/22 @ 00:35 by Benjy Ohara MD) Hypertension IDDM (insulin dependent diabetes mellitus) Surgical History History of cataract removal with insertion of prosthetic lens History of cataract removal with insertion of prosthetic lens Status post cholecystectomy Status post knee surgery Family History Brother Age: 59 Heart disease Father Heart disease Grandfather Diabetes mellitus Mother Age: 93 Alzheimer's disease Diabetes mellitus Sister Diabetes mellitus Sister Age: 71 Diabetes mellitus Hypertension Social History Smoking Status: Never smoker Smoking Status: Never smoker alcohol intake frequency: 0-2 drinks per day Substance Use Type: does not use Exam Narrative Exam Narrative: GENERAL: in no distress, not toxic not dyspneic HEAD: Normocephalic. EYES: Pupils equal round No scleral icterus. ENT: Mucous membranes moist. NECK: Trachea midline. CARDIOVASCULAR: Regular rate and rhythm without murmurs RESPIRATORY: Clear to auscultation. Breath sounds equal bilaterally. No wheezes, rales, or rhonchi. GASTROINTESTINAL: Abdomen soft, non-tender, no left or right lower quadrant tenderness. No peritoneal signs. No pain out of proportion to exam. No CVA t enderness. Bowel sounds are present. EXTREMITIES: No gross deformities. BACK: No flank tenderness. NEURO: AOx4. SKIN: Warm and dry PSYCH: Not anxious, is cooperative Initial Vital Signs Initial Vital Signs: Vital Signs Temperature 98.3 F 05/17/22 21:43 Pulse Rate 56 L 05/17/22 21:43 Respiratory Rate 20 05/17/22 21:43 Blood Pressure 120/83 05/17/22 21:43 Pulse Oximetry 98 05/17/22 21:43 Oxygen Delivery Method 05/17/22 21:43 Course Course Course Narrative: No new issues during course of stay Orders Ordered: ED Orders 05/17/22 21:40 Complete Blood Count AUTO DIFF Stat Comprehensive Metabolic Panel Stat Lipase Stat 05/17/22 21:54 CT abdomen pelvis w con Stat EKG-12 Lead Stat 05/17/22 21:56 EKG-12 Lead Stat 05/18/22 00:00 Urinalysis and Microscopic Stat Urine Culture Stat Discontinued Medications Cephalexin HCl (Cephalexin 250 Mg Capsule) 500 mg PO NOW ONE Stop: 05/18/22 00:38 Last Admin: 05/18/22 01:07 Dose: 500 mg Documented By: SRAVANTHI Reevaluation(s) Reevaluation #1: Spoke with patient and daughter results. They agree with treatment plan for UTI and follow up for colonoscopy, general surgery referral given. Return precautions reviewed with them Time: 00:37 Consultations Consultation #1: Spoke with general surgery Dr. Cooney. Informed it would be appropriate for outpatient colonoscopy. Not need for admission. Agrees antibiotic for UTI Time: 00:33 Vital Signs Vital signs: Vital Signs - 8 hr 05/17/22 21:43 05/17/22 21:46 05/17/22 22:00 Temperature 98.3 F Pulse Rate 56 L 54 L 52 L Respiratory Rate 20 Blood Pressure 120/83 Pulse Oximetry 98 97 97 Oxygen Delivery Method Room Air 05/17/22 22:01 05/17/22 22:01 05/17/22 22:33 Temperature Pulse Rate 52 L 60 Respiratory Rate Blood Pressure 137/62 Pulse Oximetry 97 99 Oxygen Delivery Method 05/17/22 22:35 05/17/22 22:35 05/17/22 23:00 Temperature Pulse Rate 66 62 Respiratory Rate Blood Pressure 132/63 Pulse Oximetry 99 97 Oxygen Delivery Method 05/17/22 23:30 05/18/22 00:08 Temperature Pulse Rate 64 69 Respiratory Rate 14 Blood Pressure Pulse Oximetry 97 91 Oxygen Delivery Method MDM - Abdominal Pain Differential Diagnosis Differential diagnosis: Likely abdominal pain, acute appendicitis, calculus of kidney, constipation, diverticulitis, pancreatitis and small bowel obstruction Lab Data Result diagrams: 05/17/22 21:40 05/17/22 21:40 Labs: Lab Results 05/17/22 05/17/22 05/18/22 Range/Units 21:40 21:40 00:00 WBC 14.0 H (4.5-11.0) X10^3/uL RBC 4.35 (4.0-5.2) X10^6/uL Hgb 13.3 (12.0-16.0) g/dL Hct 38.9 (36-46) % MCV 89.3 (80-100) fL MCH 30.5 (26-34) PG MCHC 34.1 (30-36) % RDW 12.8 (11.6-14.8) % Plt Count 269 (150-400) X10^3/uL Neut % (Auto) 48.3 L (50-75) % Lymph % (Auto) 44.6 H (25-40) % [place] % (Auto) 5.6 (3-14) % Eos % (Auto) 1.0 L (2-4) % Baso % (Auto) 0.5 (0-2) % Neut # (Auto) 6800 (5960-8670) /uL Lymph # (Auto) 6200 H (2354-7481) /uL [place] # (Auto) 800 (0-900) /uL Eos # (Auto) 100 (0-450) /uL Baso # (Auto) 100 (0-100) /uL Sodium 137 (137-145) mmol/L Potassium 3.8 (3.4-5.1) mmol/L Chloride 101 (98-107) mmol/L Carbon Dioxide 27 (22-32) mmol/L BUN 20 H (7-17) mg/dL Creatinine 1.18 H (0.52-1.04) mg/dL Estimated GFR 48 L (>60) mL/min BUN/Creatinine Ratio 16.9 (6-22) Glucose 242 H (80-110) mg/dL Calcium 9.4 (8.4-10.2) mg/dL Total Bilirubin 0.5 (0.2-1.3) mg/dL AST 23 (14-36) IU/L ALT 14 (<35) IU/L Alkaline Phosphatase 67 (38-126) U/L Total Protein 7.0 (6.3-8.2) g/dL Albumin 3.9 (3.5-5.0) g/dL Globulin 3.1 (1.7-4.1) g/dL Albumin/Globulin Ratio 1.3 (1.0-2.8) Lipase 47 (23-300) U/L Urine Color Yellow Urine Appearance Slightly cloudy Urine pH 6.5 (4.5-8.0) Ur Specific [place] <=1.005 (1.000-1.035) Urine Protein Negative (Negative) Urine Glucose (UA) Negative (Negative) g/dL Urine Ketones Trace H (NEGATIVE) Urine Occult Blood Negative (Negative) Urine Nitrate Positive H (Negative) Urine Bilirubin Negative (NEGATIVE) Urine Urobilinogen 0.2 (0.2) E.U./dL Ur Leukocyte Esterase Trace H (NEGATIVE) Urine RBC None seen (0-5/HPF) Urine WBC 30-100/hpf H (0-5/HPF) Ur Squamous Epith Cells 0-1 /hpf (0-5/HPF) Urine Bacteria Many (>30) H (None) Ur Culture Indicated? Specimen cultured Imaging Data CT scan - abdomen/pelvis: Radiologist's Impression: [place] [id number] CT Scan Report Signed Patient: Bre Sahni MR#: [id number] : 1945 Acct:[id number] Age/Sex: 76 / F Date of Service: 05/17/22 Loc: ED Accession Number: [id number] ?? Procedure: CT abdomen pelvis w con Ordering Provider: Benjy Ohara MD PROCEDURE:? CT ABDOMEN PELVIS W CON ? INDICATIONS:? left lower quadrant pain ? TECHNIQUE:? After the administration of IV contrast, axial sections were acquired from the lung bases to the pubic symphysis.? Coronal and sagittal reformats were performed.? For radiation dose reduction, the following was used:? automated exposure control, adjustment of mA and/or kV according to patient size. ? COMPARISON:? None. ? FINDINGS:? Image quality:? There is metallic streak artifact from patient's left hip prosthesis limiting evaluation.? ? Lung bases:? There is atelectasis and scarring in the lung bases.? ? Heart:? Heart size is enlarged.? There is a small hiatal hernia. ? ? ABDOMEN: Liver:? There is a small nonspecific oval hypodense lesion within the liver measuring up to 1.0 cm on series 2, image 10. Gallbladder:? Within normal limits without calcified gallstones.? ? Biliary ducts:? No biliary ductal dilatation.? ? Pancreas:? There is moderate fatty infiltration of the pancreas.? No pancreatic duct dilatation or peripancreatic fluid..? No discrete pancreatic mass identified. ? Spleen:? Normal in size.? ? Adrenal Glands:? No adrenal nodules.? ? Kidneys and Ureters:? No hydronephrosis.? There is a small left renal cortical cyst.? Mild nonspecific perinephric stranding bilaterally.? ? Stomach and Bowel:? Stomach and small bowel loops are normal in caliber and wall thickness.? No pericecal inflammatory changes to suggest appendicitis.? There is segmental wall thickening within the descending and sigmoid colon consistent with a colitis.? Colonic diverticulosis is present without acute diverticulitis. Peritoneum:? No abnormal intraperitoneal fluid.? No free air.? ? Ventral Wall: ? No hernia.? Abdominal Nodes:? No retroperitoneal or mesenteric adenopathy by size criteria.? Vessels:? Aorta and inferior vena cava are normal in size.? ? PELVIS: Pelvic Organs:? Uterus is surgically absent.? ? Bladder:? Unremarkable.? ? Pelvic Nodes: No enlarged lymph nodes.? Miscellaneous: No inguinal hernias are seen. ? ? ? Bones:? There is mild superior endplate scalloping within the T12 vertebral body with a small Schmorl's node.? Mild anterolisthesis present at L4-5.? Visualized osseous structures demonstrate no suspicious focal lesions. ? IMPRESSION:? ? 1. Segmental wall thickening of the descending and sigmoid colon with mild fat stranding consistent with a nonspecific infectious or inflammatory colitis.? Given the degree of wall thickening, consider follow-up colonoscopy to exclude an underlying mass. ? 2. Colonic diverticulosis without acute diverticulitis. ? ? Dictated by: Pipo Isaacs M.D. on 05/17/2022 at 23:17 ? ? Approved by: Pipo Isaacs M.D. on 05/17/2022 at 23:23 ? ECG Data Interpretation: Sinus rhythm rate [address] elevation or depression MDM Narrative Medical decision making narrative: Appropriate for discharge home. Pain-free at time of discharge. Return precautions reviewed with patient and daughter. Referral for General surgery for colonoscopy given. Antibiotics for UTI started tonight. Otherwise exam laboratory studies and imaging are reassuring. Not toxic at discharge Discharge Plan Departure Patient Disposition: Home Clinical Impression: Colitis, Acute UTI Activity Restrictions/Additional Instructions: Return if worse if any questions or concerns. Antibiotic prescription has been sent to [facility] pharmacy. Please call Dr. Garcia office in the morning for scheduling colonoscopy. Return if worse if any questions or concerns. See family doctor for re-evaluation of your urinary tract infection. Prescriptions: New cephalexin 500 mg capsule 500 mg PO BID Qty: 10 0RF No Action lisinopril 10 MG tablet 10 mg PO BID Qty: 0 ASPIRIN (#ASPIRIN) 325 mg PO Q DAY Qty: 0 glipizide [Glucotrol] 10 MG tablet 10 mg PO BID Qty: 0 hydrochlorothiazide 25 MG tablet 25 mg PO QDAY Qty: 0 diltiazem HCl 180 MG capsule,extended release 24hr 180 mg PO Q DAY Qty: 0 Pravastatin Sodium (PRAVASTATIN SODIUM) 40 mg PO HS Qty: 0 insulin aspart U-100 [Novolog U-100 Insulin aspart] 100 UNIT/1 ML solution Qty: 0 pramipexole [Mirapex] 0.125 MG tablet 0.125 mg PO BID Qty: 0 insulin glargine [Lantus U-100 Insulin] 100 UNIT/1 ML solution 20 unit SQ HS Qty: 10 3RF Syringes: 1cc U-100 Insulin Syringe 25g x 1 SQ BID Qty: 100 3RF meclizine 25 mg tablet 25 mg PO BID PRN (Reason: motion sickness) Qty: 14 0RF ondansetron 4 mg tablet,disintegrating 4 mg PO Q4H PRN (Reason: nausea and vomiting) Qty: 14 0RF Referrals: Roland Carbone MD [Primary Care Provider] - Visit Report Forms: Patient Portal/API
[2022-05-17 22:00] LABS: Add Manual Diff / Slide Review NO; Basophils Absolute Auto 100 /uL (0-100); Basophils Percent Auto 0.5 % (0-2); Eosinophils Absolute Auto 100 /uL (0-450); Hematocrit 38.9 % (36-46); Hemoglobin 13.3 g/dL (12.0-16.0); Lymphocytes Absolute Auto 6200 /uL (1100-4500); Lymphocytes Percent Auto 44.6 % (25-40); Mean Corpuscular HGB Conc 34.1 % (30-36); Mean Corpuscular Hemoglobin 30.5 PG (26-34); Mean Corpuscular Volume 89.3 fL (80-100); Monocytes Absolute Auto 800 /uL (0-900); Monocytes Percent Auto 5.6 % (3-14); Neutrophils Absolute Auto 6800 /uL (1500-7000); Neutrophils Percent Auto 48.3 % (50-75); Platelet Count 269 X10^3/uL (150-400); Red Blood Cell Count 4.35 X10^6/uL (4.0-5.2); Red Cell Distribution Width 12.8 % (11.6-14.8)
[2022-05-17 22:07] LABS: Alanine Aminotransferase 14 IU/L (<35); Albumin 3.9 g/dL (3.5-5.0); Albumin Globulin Ratio 1.3 (1.0-2.8); Alkaline Phosphatase 67 U/L (38-126); Aspartate Aminotransferase 23 IU/L (14-36); BUN Creatinine Ratio 16.9 (6-22); Bilirubin Total 0.5 mg/dL (0.2-1.3); Blood Urea Nitrogen 20 mg/dL (7-17); Calcium 9.4 mg/dL (8.4-10.2); Carbon Dioxide 27 mmol/L (22-32); Chloride 101 mmol/L (98-107); Estimated Glomerular Filt Rate 48 mL/min (>60); Globulin 3.1 g/dL (1.7-4.1); Glucose 242 mg/dL (80-110); HEMOLYSIS 17 (0-50); Lipase 47 U/L (23-300); Potassium 3.8 mmol/L (3.4-5.1); Sodium 137 mmol/L (137-145)
[2022-05-18 00:08] VITALS: PULSE 69; RESP 14; O2SAT 91
[2022-05-18 00:22] LABS: Bilirubin Urine UA NEGATIVE (NEGATIVE); Color Urine UA YELLOW; Glucose Urine UA NEGATIVE (Negative); Ketones Urine UA TRACE (NEGATIVE); Leukocyte Esterase Urine UA TRACE (NEGATIVE); Nitrite Urine UA POSITIVE (Negative); Occult Blood Urine UA NEGATIVE (Negative); Protein Urine UA NEGATIVE (Negative); Specific Gravity Urine UA <=1.005 (1.000-1.035); Urobilinogen Urine UA 0.2 E.U./dL (0.2)
[2022-05-18 00:25] LABS: Appearance Urine UA Slightly Cloudy; pH Urine UA 6.5 (4.5-8.0)
[2022-05-18 00:26] LABS: Bacteria Urine Many (>30); Culture Indicated Urine Specimen Cultured; RBC Urine None Seen (0-5/HPF); Squamous Epithelial Cell Urine 0-1 /HPF (0-5/HPF); WBC Urine 30-100/HPF (0-5/HPF)
[2022-05-18] MEDS: cephALEXin 250 MG CAPSULE 500 MG PO (01:07)
== END 2022-05-18 01:12 | disposition home or self-care (01) ==
PROVIDERS: Emergency Provider Emergency Medicine; PCP Family Medicine
DX: K52.9 Noninfective gastroenteritis and colitis, unspecified (principal); N39.0 Urinary tract infection, site not specified; R11.0 Nausea; R00.1 Bradycardia, unspecified; R94.31 Abnormal electrocardiogram [ECG] [EKG]
CPT/HCPCS: 74177; 80053; 81001; 83690; 85025; 87077; 87086; 87186; 93005; 93010; 99283; 99284; Q9967

== ENCOUNTER → 2022-05-23 13:45 | Outpatient (CLI) | payer MEDICARE, OTHER, SELFPAY ==
--- NOTE | 2022-06-10 16:42 | PM.CARDMON.1 ---
Media Producer Report Referral & Results Date Patient Seen: 06/23/22 Requesting provider: Roland Carbone Indication: Syncope Duration of monitoring (days): 14 Diary information: There were no patient events to review Data: Minimum heart rate identified was 34 beats per minute at 09:46 on 06/02/2022 Maximum overall heart rate was 110 beats per minute at 14:02 on 05/29/2022. This was sinus rhythm. Proximally 7.4% of identified beats were supraventricular ectopic in origin which would classify them as frequent this included occasional couplets and triplets There were no ventricular ectopic beats identified on this study There were no episodes of atrial fibrillation, pauses of 3 seconds or longer, or runs of SVT identified on this study Impression: 14 day surveillance system monitor that fails to demonstrate etiology for syncope Patient with frequent PACs and at times relatively bradycardic with minimum heart rate of 34 although no pauses or patient events to correlate with any potential bradycardia Clinical correlation suggested
== END ==
PROVIDERS: PCP Family Medicine; Referring Provider Family Medicine; Visit Provider Family Medicine
DX: R55 Syncope and collapse (principal)
CPT/HCPCS: 93246; 93248

== ENCOUNTER → 2022-07-18 07:55 | Outpatient (CLI) | payer MEDICARE, OTHER, SELFPAY ==
--- NOTE | 2022-07-18 | DI.ECHO.S_ITS ---
[facility] +---------+ [facility] +---------+ : : [address] : : : : [id number] : : : : Phone: [phone] Echocardiogram Report + + :Name: FEDE CEDILLO Study Date: 07/18/2022 Height: 61 in : :[facility] ReadingLocation: Weight: 153 lb : : Gender: Female BSA: 1.7 m2 : :: 1945 Age: 76 yrs BP: 138/64 mmHg: :Reason For Study: DYSPNEA : :Ordering Physician: LAKISHA, : :YUNG Performed By: Mandie Reynoso : :Referring: YUNG BANUELOS : + + Interpretation Summary The heart rate ranged between 54-66 bpm during the study. The left ventricle is normal in size and wall thickness. The ejection fraction is estimated to be 55-60%. Diastolic parameters suggest a pseudonormalization pattern, consistent with probable elevated filling pressures. The left atrial size is normal. There is mild mitral regurgitation. There is mild tricuspid regurgitation. The right ventricular systolic pressure is estimated to be at least 27 mmHg based on an estimated right atrial pressure of 3 mm Hg. Compared to prior study, development of mild mitral regurgitation, mild tricuspid regurgitation, progression of diastolic dysfunction. Procedure: A two-dimensional transthoracic echocardiogram with color flow and Doppler was performed. The study quality was technically adequate. Comparison is made with the echocardiogram of 01/29/2020. The heart rate ranged between 54-66 bpm during the study. Left Ventricle: The left ventricle is normal in size and wall thickness. The ejection fraction is estimated to be 55-60%. Diastolic parameters suggest a pseudonormalization pattern, consistent with probable elevated filling pressures. Right Ventricle: The right ventricle is normal in size and function. Atria: The left atrial size is normal. Right atrial size is normal. There is no Doppler evidence for an interatrial shunt. Mitral Valve: The mitral valve leaflets appear mildly thickened, but open well. There is mild mitral regurgitation. Aortic Valve: The aortic valve is trileaflet. The aortic valve opens well. There is no aortic valve stenosis. There is trace aortic regurgitation. Tricuspid Valve: The tricuspid valve is normal in structure and function. There is mild tricuspid regurgitation. The right ventricular systolic pressure is estimated to be at least 27 mmHg based on an estimated right atrial pressure of 3 mm Hg. Pulmonic Valve: The pulmonic valve leaflets are thin and pliable; valve motion is normal. There is mild pulmonic regurgitation. Great Vessels: The aortic root is normal size. The ascending aorta is mildly enlarged. The IVC is of normal diameter and collapses greater than 50% with a sniff. This suggests a low right atrial pressure of 3 mm Hg. Pericardium/ Pleura There is no pericardial effusion. There is no pleural effusion. MMode/2D Measurements & Calculations LVIDd: 5.1 cm LVOT diam: 2.2 cm LVIDs: 3.5 cm Ao root diam: 3.0 cm FS: 31.5 % asc Aorta Diam: 3.7 cm EPSS: 1.5 cm Ao Arch Diam (Prox Trans): 2.3 cm IVSd: 0.80 cm LVPWd: 0.80 cm LV cuevas. diameter/BSA (cm/m^2): 3.0 LV sys. diameter/BSA (cm/m^2): 2.1 LA A2 area: 18.5 cm2 RA long axis: 5.4 cm LA A4 area: 19.8 cm2 RA area: 15.6 cm2 LA length (vol): 6.0 cm RA vol: 37.9 ml LA vol: 52.1 ml RA : 22.5 ml/m2 LA vol index: 30.9 ml/m2 IVC diam: 0.99 cm RVD1 (basal): 2.7 cm RVD2 (mid): 2.1 cm TAPSE: 1.8 cm Doppler Measurements & Calculations Ao V2 max: 135.5 cm/sec LVOT Max Jordon: 78.6 cm/sec Ao V2 mean: 87.3 cm/sec LV V1 max P.5 mmHg Ao max P.4 mmHg LV V1 VTI: 19.1 cm Ao mean P.6 mmHg NADYA(I,D): 2.1 cm2 Ao V2 VTI: 33.6 cm NADYA(V,D): 2.1 cm2 sev ratio: 0.57 NADYA indexed to BSA (cm^2/m^2): 1.2 MV E max jordon: 66.7 cm/sec TR max jordon: 242.7 cm/sec MV A max jordon: 70.7 cm/sec TR max P.6 mmHg MV E/A: 0.94 PA V2 max: 86.0 cm/sec Med Peak E' Jordon: 4.4 cm/sec PA V2 mean: 63.3 cm/sec E/E' med: 15.3 PA mean P.7 mmHg Lat Peak E' Jordon: 7.4 cm/sec PA pr(Accel): 37.9 mmHg E/E' lat: 9.0 E/e' average: 12.1 MV dec time: 0.27 sec SV(LVOT): 69.9 ml Reading Physician:ELIESER
== END ==
PROVIDERS: PCP Family Medicine; Referring Provider Family Medicine; Visit Provider Family Medicine
DX: I08.1 Rheumatic disorders of both mitral and tricuspid valves (principal); R06.00 Dyspnea, unspecified; I77.89 Other specified disorders of arteries and arterioles
CPT/HCPCS: 93306

== ENCOUNTER → 2022-08-03 13:25 | Outpatient (CLI) | payer MEDICARE, OTHER, SELFPAY ==
[2022-08-03 14:15] LABS: COVID19 -Nasal RAPID Negative (Negative)
== END ==
PROVIDERS: PCP Family Medicine; Visit Provider Surgery
DX: Z20.822 Contact with and (suspected) exposure to COVID-19 (principal); Z01.812 Encounter for preprocedural laboratory examination
CPT/HCPCS: 87635; C9803

== ENCOUNTER 2022-08-04 07:18 | Day surgery (SDC) | payer MEDICARE, OTHER, SELFPAY ==
[2022-08-04] VITALS (7 sets, daily range): BP systolic 88–139; BP diastolic 52–79; PULSE 61–90; RESP 15–22; TEMP 36.4–37.4; O2SAT 95–99; BMI 28.9
[2022-08-04] MEDS: LACTATED RINGERS 1,000 ML 84 ML IV (07:56)
--- NOTE | 2022-08-04 08:28 | PM.PREOP ---
Pre-operative Note COVID-19 COVID-19 status: Negative Result date/Date tested (Pos, Neg/Pending): 08/03/22 Interval Note History & Physical reviewed/Exam performed by Physician: Yes Changes to H&P: No ASA Class (for procedural sedation): II
--- NOTE | 2022-08-04 08:29 | PM.HP.1 ---
History of Present Illness History of Present Illness Date Patient Seen: 08/04/22 Time Patient Seen: 08:29 Chief complaint: DX COLONOSCOPY Narrative: Bre is a 76-year-old woman who had a recent episode of rectal bleeding. Please see the office visit from Dr. Atkins for details. She does not have a known family history of colon cancer and she had a colonoscopy 6 or [address] Payan at [place]. She believes no significant polyps were found. Patient History Medical History Hypertension IDDM (insulin dependent diabetes mellitus) Surgical History History of cataract removal with insertion of prosthetic lens History of cataract removal with insertion of prosthetic lens Status post cholecystectomy Status post knee surgery Family & Social History Family History Brother Age: 59 Heart disease Father Heart disease Grandfather Diabetes mellitus Mother Age: 93 Alzheimer's disease Diabetes mellitus Sister Diabetes mellitus Sister Age: 71 Diabetes mellitus Hypertension Social History: household members none Tobacco & Substance use: Smoking Status Never smoker alcohol intake never alcohol intake frequency 0-2 drinks per day Substance Use Type does not use Meds Home Medications and Allergies Home Medications Medication Instructions Recorded Confirmed Type ASPIRIN (#ASPIRIN) 325 mg PO Q DAY ##0 07/06/12 08/04/22 History insulin aspart U-100 100 unit/mL ##0 01/14/13 07/05/22 History subcutaneous solution (Novolog U-100 Insulin aspart) Syringes: 1cc U-100 Insulin syr SQ BID ##100 08/17/16 07/05/22 Rx Syringe 25g x 1 insulin glargine 100 unit/mL 20 unit (0.2 mL) SQ HS #10 mL 08/17/16 07/05/22 Rx subcutaneous solution (Lantus U-100 Insulin) meloxicam 7.5 mg tablet 7.5 mg PO DAILY 07/05/22 08/04/22 History peg 3350-electrolytes 236 240 ml PO Q10M #4,000 mL 07/05/22 07/05/22 Rx gram-22.74 gram-6.74 gram-5.86 gram solution (Golytely) Allergies Allergy/AdvReac Type Severity Reaction Status Date / Time Sulfa (Sulfonamide Allergy Intermediate CONVULSIONS Verified 08/04/22 07:47 Antibiotics) A CHILD; RASH AN ADULT hydroxyzine [From Vistaril] Allergy Shakiness Verified 08/04/22 07:47 Exam Vital Signs (past 8 hours): - 08/04/22 07:52 Temperature 97.6 F Pulse Rate 90 Respiratory Rate 16 Blood Pressure 139/79 Pulse Oximetry 99 Const General: No acute distress Assessment & Plan Assessment and plan (1) Rectal bleeding: Status: Acute Plan We reviewed the risks and benefits of colonoscopy and she would like to proceed. Time Spent With Patient Critical Care time: I spent a total of [] minutes of critical care time on this patient's care today; this time is exclusive of procedural time.
[2022-08-04] MEDS: MIDAZOLAM 5 MG/5 ML VIAL IV (08:51)
--- NOTE | 2022-08-04 08:51 | PM.OP.COLON ---
Operative Date/Time/Diagnoses Date of procedure: 08/04/22 Time of procedure: 08:51 Pre-op diagnosis: Rectal bleeding Post-op diagnosis: same Procedure & Clinicians Study performed: Proctosigmoidoscopy Same procedure as scheduled: Yes Surgeon: Je Rico Procedure Notes Procedure in detail: Surgeon: Je Rico MD Procedure: The patient was brought to the endoscopy suite, placed in left lateral decubitus position. The patient was connected to monitoring devices. A time-out was performed. Sedation was administered. Once the patient was adequately sedated, a digital rectal exam was performed and was normal. The scope was then inserted and advanced to to the mid sigmoid colon. There were large diverticula in sigmoid colon and a very sharp turn that required us to position her supine. Once the scope was advanced beyond the sharp turn the patient developed bradycardia into the 30s and hypotension down to 70/40 lasting several minutes. Her heart rate was also irregular. At this point the colonoscope was completely withdrawn. Her heart rate and blood pressure returned to normal within few minutes. At that point her heart rate was in the 60s and her blood pressure was 119/60. The colonoscopy was terminated. The patient will be advised to undergo cardiac evaluation. Versed: 5 mg Fentanyl: 100 mcg EBL: 0 Findings: Sigmoid diverticulosis Scope withdrawal time: Not applicable Sedation minutes: 15 Post-procedure Plan for aftercare: Recommend a cardiology evaluation for bradycardia Disposition: PACU
[2022-08-04] MEDS: fentaNYL 100 MCG/2 ML INJ IV (08:53)
--- NOTE | 2022-08-04 08:58 | SUR.OPER ---
Procedure aborted d/t patient's heart rate dropped in to the 30's then returned to baseline after about 2 mins. BP dropped into the 70's/40's x1 immediately rechecked and it had come back up to baseline as well (see vitals strip). See physician's dictation.
--- NOTE | 2022-08-04 09:10 | SUR.PHASEI ---
RT present for EKG
== END 2022-08-04 10:26 | disposition home or self-care (01) ==
PROVIDERS: PCP Family Medicine; Referring Provider Surgery; Visit Provider Surgery
PROC: 0DJD8ZZ Inspection of Lower Intestinal Tract, Via Natural or Artificial Opening Endoscopic (ICD-10-PCS; CPT 45378; principal; 2022-08-04 08:30)
DX: K62.5 Hemorrhage of anus and rectum (principal); K57.30 Diverticulosis of large intestine without perforation or abscess without bleeding; R00.1 Bradycardia, unspecified; I95.9 Hypotension, unspecified; I10 Essential (primary) hypertension; E11.9 Type 2 diabetes mellitus without complications; Z79.4 Long term (current) use of insulin; Z53.09 Procedure and treatment not carried out because of other contraindication
CPT/HCPCS: 45378; 93005; 99152; J2250; J3010

== ENCOUNTER → 2022-09-19 09:12 | Outpatient (CLI) | payer MEDICARE, OTHER, SELFPAY ==
[2022-09-19 10:44] LABS: COVID19 -Nasal RAPID Negative (Negative)
--- NOTE | 2022-09-19 22:11 | DI.NM.S_ITS ---
DATE OF SERVICE: 09/19/2022 PROCEDURE: Exercise perfusion study INDICATION: AFib, shortness of breath. RADIOPHARMACEUTICAL: 26.1 millicurie technetium-99m Myoview IV was injected at stress and 11.7 millicurie technetium-99m Myoview IV was injected at rest. CARDIAC STRESS: The patient underwent exercise perfusion study under the supervision of an attending staff. She walked on Gerson protocol for 4 minutes and 38 seconds, achieved 103 percent of target heart rate and adequate blood pressure response. Baseline blood pressure 118/64 mmHg and peak blood pressure 168/80 mmHg. Baseline rhythm was AFib with intermittent PVCs. There were some nonspecific ST-T changes. During stress and in recovery, the patient has some nonspecific ST-T changes without any convincing new inducible ischemic changes. Continued to have intermittent PVCs. No sustained ventricular tachycardia. The patient did not have any chest pain, but had moderate shortness of breath. She achieved 7 METs of workload. Functional aerobic impairment positive 6 percent. RAW DATA: There was breast shadow seen. GATED STUDY: Stress LV ejection fraction 58 percent without any obvious wall motion abnormalities. Stress end-diastolic volume 60 mL. Lung/heart ratio 0.34 mL. TID ratio 0.77, which is within normal limits. MYOCARDIAL PERFUSION SCAN: Stress supine and resting supine images revealed normal myocardial perfusion. No obvious convincing ischemia or infarction pattern. CONCLUSION: I will call this study a normal myocardial perfusion study. Diminished exercise tolerance. Normal hemodynamic response. Underlying atrial fibrillation with controlled rate. Some nonspecific ST-T changes. Also, had intermittent premature ventricular contractions. No convincing inducible ischemic changes. Preserved left ventricular function. Overall, low-risk myocardial perfusion scan. Bre Sahni - MAGALI/goran/marely doc#: [id number]/job#: [id number] dd: 09/19/2022 16:37:00 dt: 09/19/2022 22:03:00 DICTATING MD/COPIES TO: Marcia Rosas MD COPIES MNE: KHANG;
== END ==
PROVIDERS: PCP Family Medicine; Referring Provider Family Medicine; Visit Provider Family Medicine
DX: I48.91 Unspecified atrial fibrillation (principal); Z20.822 Contact with and (suspected) exposure to COVID-19; R06.02 Shortness of breath
CPT/HCPCS: 78452; 87635; 93017; A9502